=== PATIENT | female | born 1965 | race Caucasian/White ===

== ENCOUNTER → 2018-10-17 19:23 | Outpatient (REF) | payer SELFPAY ==
[2018-10-17 19:37] LABS: Add Manual Diff / Slide Review NO; Basophils Percent Auto 1.4 % (0-2); Eosinophils Percent Auto 1.8 % (2-4); Hematocrit 44.7 % (36-46); Hemoglobin 14.5 g/dL (12.0-16.0); Lymphocytes Percent Auto 27.2 % (25-40); Mean Corpuscular HGB Conc 32.5 % (30-36); Mean Corpuscular Hemoglobin 28.1 PG (26-34); Mean Corpuscular Volume 86.4 fL (80-100); Monocytes Percent Auto 7.1 % (3-14); Neutrophils Absolute Auto 6000 /uL (1500-7000); Neutrophils Percent Auto 62.5 % (50-75); Platelet Count 316 X10^3/uL (150-400); Red Blood Cell Count 5.17 X10^6/uL (4.0-5.2); Red Cell Distribution Width 14.6 % (11.6-14.8); White Blood Cell Count 9.6 X10^3/uL (4.5-11.0)
[2018-10-17 19:39] LABS: Alanine Aminotransferase 27 IU/L (9-52); Albumin 4.6 g/dL (3.5-5.0); Albumin Globulin Ratio 1.3 (1.0-2.8); Alkaline Phosphatase 100 U/L (38-126); Aspartate Aminotransferase 30 IU/L (14-36); Bilirubin Total 0.6 mg/dL (0.2-1.3); Blood Urea Nitrogen 16 mg/dL (7-17); Calcium 9.8 mg/dL (8.4-10.2); Carbon Dioxide 27 mmol/L (22-32); Chloride 104 mmol/L (98-107); Estimated Glomerular Filt Rate > 60.0 mL/min (>60); Globulin 3.5 g/dL (1.7-4.1); Glucose 90 mg/dL (70-100); HEMOLYSIS < 15 (0-50); Potassium 4.6 mmol/L (3.4-5.1); Sodium 142 mmol/L (137-145); Total Protein 8.1 g/dL (6.3-8.2)
[2018-10-17 19:54] LABS: Free T3, Triiodothyronine Free 3.28 pg/mL (2.77-5.27); Free T4, Direct Thyroxine 1.59 ng/dL (0.78-2.19); Vitamin D 25 Hydroxy (D3) 31.1 ng/mL (30.0-100.0)
[2018-10-17 20:08] LABS: Thyroid Stimulating Hormone 0.72 uIU/mL (0.47-4.68)
[2018-10-17 20:27] LABS: Vitamin B12 572 pg/mL (239-931)
== END ==
LOC: LAB 19:23
PROVIDERS: Visit Provider Nurse Practitioner Acute Care
DX: R53.83 Other fatigue (principal); R53.81 Other malaise; E03.9 Hypothyroidism, unspecified; E07.9 Disorder of thyroid, unspecified
CPT/HCPCS: 80053; 82306; 82607; 84439; 84443; 84481; 85025

== ENCOUNTER → 2019-01-17 19:24 | Outpatient (REF) | payer SELFPAY ==
[2019-01-17 19:29] LABS: Bacteria Urine None Seen; RBC Urine None Seen (0-5/HPF)
[2019-01-17 19:38] LABS: Appearance Urine UA CLEAR; Bilirubin Urine UA NEGATIVE (NEGATIVE); Color Urine UA YELLOW; Glucose Urine UA NEGATIVE (Negative); Ketones Urine UA NEGATIVE (NEGATIVE); Leukocyte Esterase Urine UA NEGATIVE (NEGATIVE); Nitrite Urine UA NEGATIVE (Negative); Occult Blood Urine UA NEGATIVE (Negative); Protein Urine UA NEGATIVE (Negative); Urobilinogen Urine UA 0.2 E.U./dL (0.2)
[2019-01-17 19:40] LABS: Culture Indicated Urine Cult Not Indicated; Squamous Epithelial Cell Urine 0-1 /HPF (0-5/HPF); WBC Urine 0-1/HPF (0-5/HPF)
== END ==
LOC: LAB 19:24
PROVIDERS: Visit Provider Nurse Practitioner Acute Care
CPT/HCPCS: 81001; 87086

== ENCOUNTER 2021-07-31 02:51 | Inpatient (IN) | payer OTHER, SELFPAY ==
[2021-07-31] VITALS (42 sets, daily range): BP systolic 90–124; BP diastolic 51–78; PULSE 48–81; RESP 10–41; TEMP 36.9–37.6; O2SAT 89–97; BMI 30.6
--- NOTE | 2021-07-31 05:25 | P.HP_ITS ---
History of Present Illness History of Present Illness Date Patient Seen: 07/31/21 Time Patient Seen: 05:26 Chief complaint: Direct admit from [facility] with COVID-19 Narrative: Gloria Yan is a 56-year-old female with history of only having staghorn calculus in her kidney and hypothyroidism presented to the [facility] in [place] with complaints of nausea, syncope, cough and inability to eat due to food tasting horrible to her. She stated that she did start feeling symptoms but 2 days ago, she felt hot but did not have a fever. She found that when she got up that she developed near-syncope and almost fell a couple times. Denies headaches, chills, chest pain, abdominal pain, nausea vomiting, dysuria, diarrhea constipation. 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 Patient denies having had a vaccine in is not interested in having a vaccine when she gets over COVID. Patient was transferred as a direct admission from [facility] and was placed into a private room. Prior to transfer from [facility], she was administered IV dexamethasone 8 mg. Underwent CTA of to rule out a PE extensive oral effusions but the rest over CT angiogram is not indicated to the not a general ED provider that she normally does not use supplemental oxygen at home but was noted to be in the low 90s at rest and would drop down to the mid 80s with any exertion. Vitals as of 1556 indicated temperature of 98.6?, blood pressure 116/64, heart rate 56 respiratory rate of 16 oxygen saturation of 94% on 2 L she weighs 102.5 kg with a BMI of 30.6. WBC is slightly below normal at 3.9 lymphocyte count is low at 0.8 rest of her CBC is within normal limits. Sodium 136 potassium 3.4 chloride 101 bicarb 25, in anion gap is 10 glucose 120 BUN 17 creatinine 1.22 GFR is 49 protein 6.8 albumin 2.9 globulin 3.9 calcium 8.3, bilirubin 0.3 alk phos 61 ALT 22 AST 32 she had a normal troponin and lactate however her COVID-[address] angio was negative for a PE but did have bilateral ground-glass findings. There chest x-ray indicated patchy ground peripheral ground-glass opacities in the mid and lower lungs l[place] aterally with a finding of COVID pneumonia. Patient History Medical History (Updated 07/31/21 @ 15:52 by JESIKA Arnold) Staghorn kidney stones Family & Social History Social History: Patient states father of old age, mother is alive and well. Tobacco & Substance use: Patient denies a history of tobacco use Meds Home Medications and Allergies Home Medications Medication Instructions Recorded Confirmed Type amoxicillin 500 mg-potassium 1 tab PO BID 07/31/21 07/31/21 History clavulanate 125 mg tablet levothyroxine 125 mcg tablet 112 mcg PO DAILY 07/31/21 07/31/21 History liothyronine 5 mcg tablet 5 mcg PO DAILY 07/31/21 07/31/21 History Allergies Allergy/AdvReac Type Severity Reaction Status Date / Time adhesive AdvReac Unknown Verified 07/31/21 12:44 metformin AdvReac Unknown Verified 07/31/21 12:44 IV Contrast Allergy Unknown Uncoded 07/31/21 06:05 Review of Systems Review of Systems ROS: Yes All systems reviewed with the patient and are negative except as oth erwise documented Objective Labs Labs: Labs drawn on 07/30 will be scanned into the chart Assessment & Plan Assessment & Plan narrative: Gloria Yan is accepted for transfer from [facility] for further management treatment of COVID 19 pneumonia. 1. COVID-19 * Remdesivir 200 mg IV x1 and 100 mg IV once daily for the next 4 days * IV dexamethasone 6 mg starting today at 9:00 a.m. * Patient is encouraged to prone for at least 12 hours a day 2. Chronic renal impairment secondary to large kidney stones * Patient has a creatinine of 1.2 and will renally dose her medications VTE Prophylaxis: Wells risk score 0 Enoxaparin 40 mg subQ once daily Patient is admitted to the inpatient service due to the severity of disease, risks of further disease progression and this stay is expected to exceed 2 midnights. FEN: IV fluids: IV normal saline at 100 mL per hour diet: General, labs: CBC, C/BMP, liver enzymes, Mag, PT/INR Consultants None Dispo: Home Code status: Full code as discussed with the patient who identifies her husbandsurrogate and POA. [X] I have utilized all available immediate resources to obtain, update, or review of the patient's current medications Quality VTE Deep Vein Thrombosis/Pulmonary Embolism Present on Admission: No MIPS - Admit I confirm the patient?s Advance Care Plan is present, Code status is documented, Surrogate decision maker is in patient?s record [If Yes, STOP here]: Yes MIPS - DC The patient has current or prior documentation of left ventricular ejection fraction (LVEF) less than 40%, or moderate or severely depressed left ventricular systolic function.: No
--- NOTE | 2021-07-31 06:46 | PC.ADMIT ---
[address] Admission Note: The patient,Gloria Yan,56 y/o, was given written information regarding hospital policies, unit procedures and contact persons. Patient's smoking status: Never smoker. Vital Signs - 8 hr 07/31/21 05:30 Temperature 99.6 F Pulse Rate 58 L Respiratory Rate 24 Blood Pressure 119/78 Pulse Oximetry 94 0500-Patient is a Direct Admit from [facility], oriented x3, speech is clear but delayed. Ambulated to with SBA on 2L NC, SpO2 >92% mild shortness of breath, persistent cough. SB/SR, BP 119/78, afebrile. Patient says she usually lies on her stomach while sleeping, she started proning right away.
[2021-07-31] MEDS: REMDESIVIR 200 MG in SODIUM CHLORIDE 0.9% 210 ML 250 ML IV (07:38)
[2021-07-31] MEDS: SODIUM CHLORIDE 0.9% FLUSH 10 ML IV ×3 (07:38→20:00)
[2021-07-31] MEDS: DEXAMETHASONE 10 MG/ML VIAL 6 MG IV (08:56)
[2021-07-31] MEDS: HEPARIN 5,000 UNIT/ML VIAL 5000 UNIT SUBCUT ×2 (08:57→20:00)
--- NOTE | 2021-07-31 12:37 | PC.NURSE ---
Patient napped soundly in prone position. Patient reports feeling fatigued, and states she keeps sweating while sleeping. She reports some lightheadedness when getting up out of bed. Patient assisted to BSC, reported feeling like I need to sit again upon standing. BP down to 90/53 with HR of [address] Barlow notified and 1L normal saline bolus ordered. Patient back in bed and attempting to eat lunch. Call light within reach. Bed alarm on.
[2021-07-31] MEDS: SODIUM CHLORIDE 0.9% 1,000 ML 1000 ML IV (12:50)
--- NOTE | 2021-07-31 13:54 | CM.DANOTE ---
Patient is a 56 yo female who was admitted on 07/31/21 today for COVID+. Pt has [facility] for insurance and her PCP is not listed. EMR was reviewed. Per MD, pt was a direct admit from [facility] in [place] for COVID symptoms. Per RN, pt proning right away and currently on 2LO2 and fatigues quickly after getting up to bedside commode. SW called pt on room phone due to COVID+ precautions and explained role and pt very brief and minimal in her answers but confirms that she lives with Shane in [place] and pt is independent at baseline. SW inquired if spouse is having any symptoms and she states he will tell you he's fine but I'm not sure. Pt confirms that he currently is not going in to work and could potentially provide assist at d/c pending how he is feeling. Pt states that they do not have any other family or friends who could provide assist like dropping off meals or going to the store. SW discussed possible option of HH at d/c if below baseline but likely not needed and unclear if her insurance would cover HH. Pt not providing much more info at this time. Plan: SW to follow closely for pt progress and potential weaning off oxygen to room air to see how she tolerates and her activity tolerance towards determining d/c planning needs closer to discharge. MARY Becerra Discharge Planning/Care Management CM Discharge Assessment Start: 07/31/21 13:36 Freq: Status: Active Protocol: Document 07/31/21 13:36 BF (Rec: 07/31/21 13:54 BF [id number]) Discharge Planning Assessment Assigned Home Lighting Adviser MARY Tian DPOA/Assigned Designee Name spouse informally Contact Information Shane Yan Advance Directives? Yes Advance Directives on File No History Provided By Patient,Medical Record Has Patient been admitted in last 30 No days? Prior Living Arrangements House Household Members spouse Type of transporation used prior to Drives own vehicle admit Independent with ADL's Yes Is patient alert and oriented? Yes Caregiver for Another No Comment r/o possible HH pending progress Barriers to Discharge No Discharge Plan Home with Home Health Transportation Arrangement possible spouse pending his symptoms Additional Comment pending progress Review Status In Process Please Provide Date Initial DC 07/31/21 Assessment Was Performed Next Review Type Continued Stay Review
[2021-07-31] MEDS: LEVOTHYROXINE 112 MCG TABLET PO (18:28)
[2021-07-31] MEDS: LIOTHYRONINE 5 MCG TABLET PO (18:29)
[2021-07-31] MEDS: AMOXICILLIN/CLAV 500/125 MG 1 TAB PO (19:47)
[2021-08-01] VITALS (13 sets, daily range): BP systolic 93–124; BP diastolic 50–60; PULSE 48–65; RESP 16–21; TEMP 36.7–37.2; O2SAT 89–97
[2021-08-01] MEDS: LEVOTHYROXINE 112 MCG TABLET PO (05:00)
[2021-08-01 05:20] LABS: Add Manual Diff / Slide Review NO; Basophils Absolute Auto 100 /uL (0-100); Basophils Percent Auto 1.7 % (0-2); Eosinophils Absolute Auto 0 /uL (0-450); Eosinophils Percent Auto 0.1 % (2-4); Hematocrit 37.8 % (36-46); Hemoglobin 12.6 g/dL (12.0-16.0); Lymphocytes Absolute Auto 1000 /uL (1100-4500); Lymphocytes Percent Auto 13.5 % (25-40); Mean Corpuscular HGB Conc 33.4 % (30-36); Mean Corpuscular Hemoglobin 27.4 PG (26-34); Mean Corpuscular Volume 82.1 fL (80-100); Monocytes Absolute Auto 900 /uL (0-900); Monocytes Percent Auto 11.2 % (3-14); Neutrophils Absolute Auto 5600 /uL (1500-7000); Neutrophils Percent Auto 73.5 % (50-75); Platelet Count 192 X10^3/uL (150-400); Red Cell Distribution Width 13.8 % (11.6-14.8); White Blood Cell Count 7.7 X10^3/uL (4.5-11.0)
[2021-08-01 05:24] LABS: BUN Creatinine Ratio 20.8 (6-22); Blood Urea Nitrogen 16 mg/dL (7-17); Calcium 8.6 mg/dL (8.4-10.2); Carbon Dioxide 26 mmol/L (22-32); Chloride 106 mmol/L (98-107); Estimated Glomerular Filt Rate > 60.0 mL/min (>60); Glucose 121 mg/dL (70-100); HEMOLYSIS < 15 (0-50); Sodium 138 mmol/L (137-145)
[2021-08-01] MEDS: LIOTHYRONINE 5 MCG TABLET PO (07:44)
[2021-08-01] MEDS: AMOXICILLIN/CLAV 500/125 MG 1 TAB PO ×2 (08:27→20:55)
[2021-08-01] MEDS: DEXAMETHASONE 10 MG/ML VIAL 6 MG IV (08:27)
[2021-08-01] MEDS: SODIUM CHLORIDE 0.9% FLUSH 10 ML IV ×3 (08:27→20:56)
[2021-08-01] MEDS: REMDESIVIR 100 MG in SODIUM CHLORIDE 0.9% 230 ML 250 ML IV (08:27)
[2021-08-01] MEDS: HEPARIN 5,000 UNIT/ML VIAL 5000 UNIT SUBCUT ×2 (08:28→20:55)
--- NOTE | 2021-08-01 15:05 | PC.NURSE ---
Shift summary: Patient remains on 2L NC today, 90-97% spo2, still fatigued and short of breath with exertion. Using BSC with 1 PA/SB assistance. Able to call and make her needs known, bed alarm activated for fall precautions, call light within reach. SLIV to left AC.
--- NOTE | 2021-08-01 16:50 | PM.PN.1 ---
Subjective Subjective Date Patient Seen: 08/01/21 Time Patient Seen: 08:00 Interval history: Her dizziness and lightheadedness have improved. Her shortness of breath is starting to improve. She coughs when trying to take a deep breath. I did turn off her oxygen which was at 3L and she desat to the 80s at rest. Exam Vital Signs (past 8 hours): - 08/01/21 09:27 08/01/21 12:00 08/01/21 14:26 Temperature 98.5 F Pulse Rate 56 L 58 L 48 L Respiratory Rate 18 16 18 Blood Pressure 95/56 L Pulse Oximetry 97 93 90 L 08/01/21 16:39 Temperature 98.8 F Pulse Rate 63 Respiratory Rate 21 Blood Pressure 93/50 L Pulse Oximetry 91 Oxygen Delivery Method Nasal Cannula Oxygen Flow Rate 2 Narrative Exam Narrative: GEN: no acute distress PULM: poor air movement, coarse breath sounds ABD: soft, nontender, nondistended, no organomegaly EXT: warm and well perfused with no edema Objective Labs Result Diagrams: 08/01/21 05:05 08/01/21 05:05 Labs: Laboratory Results - last 24 hr 08/01/21 08/01/21 05:05 05:05 WBC 7.7 RBC 4.60 Hgb 12.6 Hct 37.8 MCV 82.1 MCH 27.4 MCHC 33.4 RDW 13.8 Plt Count 192 Neut % (Auto) 73.5 Lymph % (Auto) 13.5 L [place] % (Auto) 11.2 Eos % (Auto) 0.1 L Baso % (Auto) 1.7 Neut # (Auto) 5600 Lymph # (Auto) 1000 L [place] # (Auto) 900 Eos # (Auto) 0 Baso # (Auto) 100 Sodium 138 Potassium 4.0 Chloride 106 Carbon Dioxide 26 BUN 16 Creatinine 0.77 Estimated GFR > 60.0 BUN/Creatinine Ratio 20.8 Glucose 121 H Calcium 8.6 PFSH Medical History (Updated 07/31/21 @ 15:52 by JESIKA Arnold) Staghorn kidney stones Social History household members: spouse Smoking Status: Never smoker Assessment & Plan Assessment & Plan narrative: Ms. Yan is a 56W with PMH frequent UTIs, hypothyroid who comes in with acute hypoxemic respiratory failure from COVID pneumonia. 1. Acute hypoxemic respiratory failure from COVID pneumonia -continue on oxygen and wean as able goal >90% -conntinue dexamethasone and remdesivir -encourage proning -recommend vaccination at discharge 2. Hypothyroidism -continue home medications for now 3. Frequent UTIs -continue suppressive abx Time Spent With Patient Critical Care time: I spent a total of [] minutes of critical care time on this patient's care today; this time is exclusive of procedural time. Quality VTE Deep Vein Thrombosis/Pulmonary Embolism Present on Admission: No
[2021-08-02] VITALS (26 sets, daily range): BP systolic 88–133; BP diastolic 52–69; PULSE 43–77; RESP 16–25; TEMP 36.3–36.8; O2SAT 88–94
[2021-08-02 04:52] LABS: Add Manual Diff / Slide Review NO; BUN Creatinine Ratio 26.1 (6-22); Basophils Absolute Auto 0 /uL (0-100); Basophils Percent Auto 0.2 % (0-2); Blood Urea Nitrogen 18 mg/dL (7-17); Calcium 8.4 mg/dL (8.4-10.2); Carbon Dioxide 26 mmol/L (22-32); Chloride 106 mmol/L (98-107); Eosinophils Absolute Auto 0 /uL (0-450); Estimated Glomerular Filt Rate > 60.0 mL/min (>60); Glucose 127 mg/dL (70-100); HEMOLYSIS < 15 (0-50); Hematocrit 37.9 % (36-46); Hemoglobin 12.7 g/dL (12.0-16.0); Lymphocytes Absolute Auto 1300 /uL (1100-4500); Lymphocytes Percent Auto 18.6 % (25-40); Mean Corpuscular HGB Conc 33.7 % (30-36); Mean Corpuscular Hemoglobin 27.8 PG (26-34); Mean Corpuscular Volume 82.5 fL (80-100); Monocytes Absolute Auto 1000 /uL (0-900); Monocytes Percent Auto 14.3 % (3-14); Neutrophils Absolute Auto 4800 /uL (1500-7000); Neutrophils Percent Auto 66.9 % (50-75); Platelet Count 234 X10^3/uL (150-400); Red Blood Cell Count 4.59 X10^6/uL (4.0-5.2); Sodium 137 mmol/L (137-145); White Blood Cell Count 7.1 X10^3/uL (4.5-11.0)
[2021-08-02] MEDS: LIOTHYRONINE 5 MCG TABLET PO (06:19)
[2021-08-02] MEDS: LEVOTHYROXINE 112 MCG TABLET PO (06:19)
[2021-08-02] MEDS: DEXAMETHASONE 10 MG/ML VIAL 6 MG IV (08:57)
[2021-08-02] MEDS: HEPARIN 5,000 UNIT/ML VIAL 5000 UNIT SUBCUT ×2 (08:57→20:32)
[2021-08-02] MEDS: AMOXICILLIN/CLAV 500/125 MG 1 TAB PO ×2 (08:57→20:32)
[2021-08-02] MEDS: SODIUM CHLORIDE 0.9% FLUSH 10 ML IV ×2 (08:59→20:32)
[2021-08-02] MEDS: REMDESIVIR 100 MG in SODIUM CHLORIDE 0.9% 230 ML 250 ML IV (09:07)
--- NOTE | 2021-08-02 10:46 | CM.DPC ---
DCP Cont: Per MD, pt remains stable on 2LO2 still and seems to be improving some and does not anticipate any needs at d/c once stable. Pt unvaccinated for COVID at baseline. Per RN, currently no concerns although noted pt also has flat affect with brief answers with nursing staff similar to SW discussion with pt. Plan: SW to follow for plan of d/c home with spouse when medically stable and any further identified discharge planning needs. MARY Becerra
--- NOTE | 2021-08-02 13:44 | PC.NURSE ---
Orthostatic vital signs reported to Dr. Mendes. Patient reports she still feels weird in her lungs today, states she slept well. Tolerating diet, SB assist to BSC for safety. De saturated to 83% on 2L with activity, at rest 94%. Call light within reach.
[2021-08-02] MEDS: LACTATED RINGERS 1,000 ML 150 ML IV ×2 (15:21→23:44)
[2021-08-02] MEDS: POLYVINYL ALCOHOL DROPS 1 DROPS EYE-BOTH (15:22)
--- NOTE | 2021-08-02 17:19 | P.PN_ITS ---
Subjective Subjective Date Patient Seen: 08/02/21 Interval history: 56-year-old female admitted to the hospital with acute hypoxic respiratory failure secondary to COVID pneumonia. The patient continues to have orthostatic hypotension. She also is hypoxic. Questions were answered regard ing treatment of COVID. Patient requests eyedrops given at her dry eyes. Exam Vital Signs (past 8 hours): - 08/02/21 12:18 08/02/21 12:20 08/02/21 12:55 Temperature 97.4 F L Pulse Rate 56 L Pulse Rate [Orthostatic Lying] 56 L Pulse Rate [Orthostatic Sitting] 58 L Pulse Rate [Orthostatic Standing] 77 Respiratory Rate 25 H Blood Pressure 123/62 Blood Pressure [Orthostatic Lying] 123/62 Blood Pressure [Orthostatic Sitting] 111/57 L Blood Pressure [Orthostatic Standing] 88/55 L Pulse Oximetry 88 L 94 08/02/21 16:00 Temperature 97.6 F Pulse Rate 48 L Pulse Rate [Orthostatic Lying] Pulse Rate [Orthostatic Sitting] Pulse Rate [Orthostatic Standing] Respiratory Rate 16 Blood Pressure 117/66 Blood Pressure [Orthostatic Lying] Blood Pressure [Orthostatic Sitting] Blood Pressure [Orthostatic Standing] Pulse Oximetry 94 Oxygen Delivery Method Nasal Cannula Oxygen Flow Rate 2 Narrative Exam Narrative: Pleasant female resting comfortably in no obvious distress Resp Other: Lungs: Basilar crackles Cardio Other: Cardiac exam: Regular rate and rhythm normal S1-S2 GI Other: Abdomen: Soft and nontender Extrem Other: Extremities: No edema Objective Labs Result Diagrams: 08/02/21 04:30 08/02/21 04:30 Labs: Laboratory Results - last 24 hr 08/02/21 08/02/21 04:30 04:30 WBC 7.1 RBC 4.59 Hgb 12.7 Hct 37.9 MCV 82.5 MCH 27.8 MCHC 33.7 RDW 14.0 Plt Count 234 Neut % (Auto) 66.9 Lymph % (Auto) 18.6 L [place] % (Auto) 14.3 H Eos % (Auto) 0.0 L Baso % (Auto) 0.2 Neut # (Auto) 4800 Lymph # (Auto) 1300 [place] # (Auto) 1000 H Eos # (Auto) 0 Baso # (Auto) 0 Sodium 137 Potassium 4.0 Chloride 106 Carbon Dioxide 26 BUN 18 H Creatinine 0.69 Estimated GFR > 60.0 BUN/Creatinine Ratio 26.1 H Glucose 127 H Calcium 8.4 PFSH Medical History (Updated 07/31/21 @ 15:52 by JESIKA Arnold) Staghorn kidney stones Social History household members: spouse Smoking Status: Never smoker Assessment & Plan Assessment & Plan narrative: ?Acute hypoxemic respiratory failure from COVID pneumonia -continue on oxygen and wean as able goal >90% -conntinue dexamethasone and remdesivir -encourage proning -recommend vaccination at discharge -patient remains hypoxic, will continue current treatment 2. Hypothyroidism -continue home medications for now 3. Frequent UTIs -continue suppressive abx 4. Orthostatic hypotension -suspect dehydration -continue IV hydration -if symptoms persists consider Cortrosyn stimulation test I have utilized all available resources to update, validate, confirm current medications Time Spent With Patient Critical Care time: I spent a total of [] minutes of critical care time on this patient's care today; this time is exclusive of procedural time. Quality VTE Deep Vein Thrombosis/Pulmonary Embolism Present on Admission: No
[2021-08-03] VITALS (8 sets, daily range): BP systolic 87–157; BP diastolic 56–76; PULSE 49–91; RESP 16–22; TEMP 36.3–37.2; O2SAT 85–95
[2021-08-03 05:25] LABS: Alanine Aminotransferase 16 IU/L (<35); Albumin 2.9 g/dL (3.5-5.0); Alkaline Phosphatase 53 U/L (38-126); Aspartate Aminotransferase 32 IU/L (14-36); BUN Creatinine Ratio 22.1 (6-22); Bilirubin Total 0.3 mg/dL (0.2-1.3); Blood Urea Nitrogen 15 mg/dL (7-17); Calcium 8.3 mg/dL (8.4-10.2); Carbon Dioxide 26 mmol/L (22-32); Chloride 107 mmol/L (98-107); Estimated Glomerular Filt Rate > 60.0 mL/min (>60); Globulin 2.9 g/dL (1.7-4.1); Glucose 120 mg/dL (70-100); HEMOLYSIS < 15 (0-50); Potassium 3.9 mmol/L (3.4-5.1); Sodium 138 mmol/L (137-145); Total Protein 5.8 g/dL (6.3-8.2)
[2021-08-03] MEDS: LIOTHYRONINE 5 MCG TABLET PO (06:04)
[2021-08-03] MEDS: LEVOTHYROXINE 112 MCG TABLET PO (06:04)
--- NOTE | 2021-08-03 06:33 | PC.NURSE ---
Shift Note-Patient sleeps prone, O2 increased to 4L with humidification to keep SpO2 >90%, desats to 83% during activity, takes ~ 10 minutes to recover, says my lungs feel tight, lung sounds are diminished, RR shallow in 20s, discussed with DIAMOND DIE POLISHER in house, LR decreased to 60ml/hr, UOP 825ml for shift, orthostatic vitals done, see chart, denies lightheadedness but can't stand too long d/t fatigue, CXR for later in am.
--- NOTE | 2021-08-03 07:30 | DI.RAD.S_ITS ---
PROCEDURE: XR CHEST 1V INDICATIONS: Increasing shortness of breath and oxygen needs COVID + TECHNIQUE: One view of the chest was acquired. COMPARISON: None. FINDINGS: Bilateral interstitial and airspace opacities, most pronounced in the lung bases. No visible pleural effusion. No findings of pneumothorax. Heart size is normal. IMPRESSION: Bilateral interstitial and airspace opacities are nonspecific but would be consistent with the provided history of viral pneumonia/pneumonitis. Dictated by: Ronnie Fabian M.D. on 08/03/2021 at 8:37 Approved by: Ronnie Fabian M.D. on 08/03/2021 at 9:26
[2021-08-03] MEDS: SODIUM CHLORIDE 0.9% FLUSH 10 ML IV ×2 (08:37→21:38)
[2021-08-03] MEDS: DEXAMETHASONE 10 MG/ML VIAL 6 MG IV (08:37)
[2021-08-03] MEDS: AMOXICILLIN/CLAV 500/125 MG 1 TAB PO ×2 (08:37→21:38)
[2021-08-03] MEDS: REMDESIVIR 100 MG in SODIUM CHLORIDE 0.9% 230 ML 250 ML IV (08:37)
[2021-08-03] MEDS: HEPARIN 5,000 UNIT/ML VIAL 5000 UNIT SUBCUT ×2 (08:37→21:38)
--- NOTE | 2021-08-03 17:17 | PM.PN.1 ---
Subjective Subjective Date Patient Seen: 08/03/21 Interval history: The patient is a 56 y/o female admitted with acute hypoxic respiratory failure secondary to Covid-19 pneumonia. She remains hypoxic. She desaturates to 88 % at rest on room air. No further dizziness. no further hypotension Exam Vital Signs (past 8 hours): - 08/03/21 11:43 08/03/21 12:30 08/03/21 16:35 Temperature 97.8 F 97.4 F L Pulse Rate 57 L 59 L 53 L Respiratory Rate 16 Blood Pressure 108/62 113/63 Pulse Oximetry 94 94 85 L Oxygen Delivery Method Nasal Cannula Oxygen Flow Rate 3 Narrative Exam Narrative: 56 y/o female with a flat affect, resting comfortably on 3 liters of oxygen Resp Other: Decreased breath sounds with occassional scattered crackles Cardio Other: RRR nl SlS2 GI Other: Abd: soft/ non tender Extrem Other: no edema Objective Labs Result Diagrams: 08/02/21 04:30 08/03/21 04:40 Labs: Laboratory Results - last 24 hr 08/03/21 04:40 Sodium 138 Potassium 3.9 Chloride 107 Carbon Dioxide 26 BUN 15 Creatinine 0.68 Estimated GFR > 60.0 BUN/Creatinine Ratio 22.1 H Glucose 120 H Calcium 8.3 L Total Bilirubin 0.3 AST 32 ALT 16 Alkaline Phosphatase 53 Total Protein 5.8 L Albumin 2.9 L Globulin 2.9 Albumin/Globulin Ratio 1.0 [facility] Medical History (Updated 07/31/21 @ 15:52 by JESIKA Arnold) Staghorn kidney stones Social History household members: spouse Smoking Status: Never smoker Assessment & Plan Assessment & Plan narrative: Acute hypoxemic respiratory failure from COVID pneumonia -continue on oxygen and wean as able goal >90% -conntinue dexamethasone and remdesivir -encourage proning -recommend vaccination at discharge -patient remains hypoxic, will continue current treatment -at day #5 of decadron/remdesivir, consider discharge home with oxygen if she can maintain her saturations on 4 liters of oxygen or less 2. Hypothyroidism -continue home medications for now 3. Frequent UTIs -continue suppressive abx 4. Orthostatic hypotension -suspect dehydration -continue IV hydration no longer orthostatic will continue to monitor Time Spent With Patient Critical Care time: I spent a total of [] minutes of critical care time on this patient's care today; this time is exclusive of procedural time. Quality VTE Deep Vein Thrombosis/Pulmonary Embolism Present on Admission: No
[2021-08-03 18:51] LABS: Ferritin 228 ng/mL (11-264)
[2021-08-04] VITALS (9 sets, daily range): BP systolic 93–137; BP diastolic 57–68; PULSE 55–75; RESP 19–28; TEMP 36.4–36.9; O2SAT 82–94
[2021-08-04] MEDS: ONDANSETRON 4 MG/2 ML INJ IV (00:56)
[2021-08-04 05:15] LABS: Add Manual Diff / Slide Review NO; Basophils Absolute Auto 0 /uL (0-100); Basophils Percent Auto 0.1 % (0-2); Eosinophils Absolute Auto 0 /uL (0-450); Hematocrit 38.6 % (36-46); Hemoglobin 12.9 g/dL (12.0-16.0); Lymphocytes Absolute Auto 1700 /uL (1100-4500); Lymphocytes Percent Auto 16.9 % (25-40); Mean Corpuscular HGB Conc 33.3 % (30-36); Mean Corpuscular Hemoglobin 27.5 PG (26-34); Mean Corpuscular Volume 82.6 fL (80-100); Monocytes Absolute Auto 1000 /uL (0-900); Monocytes Percent Auto 10.7 % (3-14); Neutrophils Absolute Auto 7100 /uL (1500-7000); Neutrophils Percent Auto 72.3 % (50-75); Platelet Count 339 X10^3/uL (150-400); Red Blood Cell Count 4.68 X10^6/uL (4.0-5.2); Red Cell Distribution Width 13.9 % (11.6-14.8); White Blood Cell Count 9.8 X10^3/uL (4.5-11.0)
[2021-08-04 05:19] LABS: Alanine Aminotransferase 17 IU/L (<35); Alkaline Phosphatase 49 U/L (38-126); Aspartate Aminotransferase 33 IU/L (14-36); BUN Creatinine Ratio 25.4 (6-22); Bilirubin Total 0.5 mg/dL (0.2-1.3); Blood Urea Nitrogen 16 mg/dL (7-17); Calcium 8.3 mg/dL (8.4-10.2); Carbon Dioxide 26 mmol/L (22-32); Chloride 107 mmol/L (98-107); Estimated Glomerular Filt Rate > 60.0 mL/min (>60); Globulin 2.9 g/dL (1.7-4.1); Glucose 116 mg/dL (70-100); HEMOLYSIS 20 (0-50); Potassium 3.9 mmol/L (3.4-5.1); Sodium 138 mmol/L (137-145); Total Protein 5.9 g/dL (6.3-8.2)
[2021-08-04 05:22] LABS: D Dimer 666 ng/mL (<230)
[2021-08-04 05:36] LABS: Procalcitonin 0.05 ng/mL (<0.5)
[2021-08-04] MEDS: LIOTHYRONINE 5 MCG TABLET PO (06:14)
[2021-08-04] MEDS: LEVOTHYROXINE 112 MCG TABLET PO (06:14)
[2021-08-04] MEDS: SODIUM CHLORIDE 0.9% FLUSH 10 ML IV ×2 (08:34→20:36)
[2021-08-04] MEDS: REMDESIVIR 100 MG in SODIUM CHLORIDE 0.9% 230 ML 250 ML IV (08:34)
[2021-08-04] MEDS: DEXAMETHASONE 10 MG/ML VIAL 6 MG IV (08:34)
[2021-08-04] MEDS: HEPARIN 5,000 UNIT/ML VIAL 5000 UNIT SUBCUT ×2 (08:34→20:36)
[2021-08-04] MEDS: AMOXICILLIN/CLAV 500/125 MG 1 TAB PO ×2 (08:34→20:36)
--- NOTE | 2021-08-04 13:38 | PC.NURSE ---
Addendum entered by Blanca Cardenas R.N. 08/04/21 14:53: Patient able to shower and brush teeth on 7L NC, SpO2 decreased to upper 80s. Currently proning and oxygen weaned back to 5L NC, SpO2 95-98%. Will continue to wean as able. Original Note: Day Shift Note Patient sitting up in bed majority of shift. On 5L NC with SpO2 slowly decreasing to 87-90%. Denies shortness of breath. Instructed to deep breathe through nose and instructed to prone or side lie during the day to optimize oxygenation. Pt agreeable and immediately repositioned self to right side, SpO2 increased to 94-95%.
--- NOTE | 2021-08-04 18:07 | P.PN_ITS ---
Subjective Subjective Date Patient Seen: 08/04/21 Interval history: 56-year-old female admitted to the hospital with COVID pneumonia. She continues to be hypoxic. She desaturates easily with minimal activity. Patient currently remains on 5 L of oxygen. She desaturated to 86% earlier after taking a shower. She has no specific complaints. Patient is anxious to discharge home. Exam Vital Signs (past 8 hours): - 08/04/21 12:46 08/04/21 13:15 08/04/21 17:00 Temperature 98 F Pulse Rate 56 L 59 L Respiratory Rate 20 26 H Blood Pressure 129/68 119/67 Pulse Oximetry 92 94 86 L Oxygen Delivery Method Nasal Cannula Oxygen Flow Rate 5 Narrative Exam Narrative: Unhappy female lying in bed Resp Other: Lungs decreased breath sounds no rhonchi crackles or wheezes Cardio Other: Cardiac exam: Regular rate and rhythm normal S1-S2 GI Other: Abdomen soft nontender nondistended Extrem Other: Extremity no edema Objective Labs Result Diagrams: 08/04/21 04:35 08/04/21 04:35 Labs: Laboratory Results - last 24 hr 08/03/21 08/04/21 08/04/21 04:40 04:35 04:35 WBC 9.8 RBC 4.68 Hgb 12.9 Hct 38.6 MCV 82.6 MCH 27.5 MCHC 33.3 RDW 13.9 Plt Count 339 Neut % (Auto) 72.3 Lymph % (Auto) 16.9 L [place] % (Auto) 10.7 Eos % (Auto) 0.0 L Baso % (Auto) 0.1 Neut # (Auto) 7100 H Lymph # (Auto) 1700 [place] # (Auto) 1000 H Eos # (Auto) 0 Baso # (Auto) 0 D-Dimer Sodium 138 Potassium 3.9 Chloride 107 Carbon Dioxide 26 BUN 16 Creatinine 0.63 Estimated GFR > 60.0 BUN/Creatinine Ratio 25.4 H Glucose 116 H Calcium 8.3 L Ferritin 228 Total Bilirubin 0.5 AST 33 ALT 17 Alkaline Phosphatase 49 Total Protein 5.9 L Albumin 3.0 L Globulin 2.9 Albumin/Globulin Ratio 1.0 Procalcitonin 08/04/21 08/04/21 04:35 04:35 WBC RBC Hgb Hct MCV MCH MCHC RDW Plt Count Neut % (Auto) Lymph % (Auto) [place] % (Auto) Eos % (Auto) Baso % (Auto) Neut # (Auto) Lymph # (Auto) [place] # (Auto) Eos # (Auto) Baso # (Auto) D-Dimer 666 H Sodium Potassium Chloride Carbon Dioxide BUN Creatinine Estimated GFR BUN/Creatinine Ratio Glucose Calcium Ferritin Total Bilirubin AST ALT Alkaline Phosphatase Total Protein Albumin Globulin Albumin/Globulin Ratio Procalcitonin 0.05 [facility] Medical History (Updated 07/31/21 @ 15:52 by JESIKA Aronld) Staghorn kidney stones Social History household members: spouse Smoking Status: Never smoker Assessment & Plan Assessment & Plan narrative: ?Acute hypoxemic respiratory failure from COVID pneumonia -continue on oxygen and wean as able goal >90% -conntinue dexamethasone and remdesivir -encourage proning -recommend vaccination at discharge -patient remains hypoxic, will continue current treatment -at day #5 of decadron/remdesivir, consider discharge home with oxygen if she can maintain her saturations on 4 liters of oxygen or less -she remains markedly hypoxic, will attempt discharge home after day 5 of remdesivir if she can maintain O2 sat on 4 L of less of oxygen 2. Hypothyroidism -continue home medications for now 3. Frequent UTIs -continue suppressive abx 4. Orthostatic hypotension -suspect dehydration -continue IV hydration no longer orthostatic will continue to monitor Disposition home at discharge Time Spent With Patient Critical Care time: I spent a total of [] minutes of critical care time on this patient's care today; this time is exclusive of procedural time. Quality VTE Deep Vein Thrombosis/Pulmonary Embolism Present on Admission: No
[2021-08-05 00:45] VITALS: BP 104/55; PULSE 54; RESP 20; O2SAT 88
[2021-08-05] MEDS: ACETAMINOPHEN 325 MG TABLET 650 MG PO ×2 (00:52→13:45)
[2021-08-05] MEDS: LEVOTHYROXINE 112 MCG TABLET PO (06:20)
[2021-08-05] MEDS: LIOTHYRONINE 5 MCG TABLET PO (06:20)
[2021-08-05 06:40] VITALS: BP 128/67; PULSE 84; RESP 21; TEMP 36.9; O2SAT 94
[2021-08-05 08:30] VITALS: BP 111/62; PULSE 64; RESP 20; TEMP 36.5; O2SAT 96
[2021-08-05] MEDS: HEPARIN 5,000 UNIT/ML VIAL 5000 UNIT SUBCUT (09:26)
[2021-08-05] MEDS: REMDESIVIR 100 MG in SODIUM CHLORIDE 0.9% 230 ML 250 ML IV (09:26)
[2021-08-05] MEDS: AMOXICILLIN/CLAV 500/125 MG 1 TAB PO (09:26)
[2021-08-05] MEDS: DEXAMETHASONE 10 MG/ML VIAL 6 MG IV (09:26)
[2021-08-05] MEDS: SODIUM CHLORIDE 0.9% FLUSH 10 ML IV (09:27)
[2021-08-05 11:00] VITALS: O2SAT 92
[2021-08-05 11:29] VITALS: O2SAT 92
--- NOTE | 2021-08-05 12:05 | PM.DS.1 ---
History of Present Illness History of Present Illness Date Patient Seen: 08/05/21 Chief complaint: Direct admit from [facility] with COVID-19 Narrative: Gloria Yan is a 56-year-old female with history of only having staghorn calculus in her kidney and hypothyroidism presented to the [facility] in [place] with complaints of nausea, syncope, cough and inability to eat due to food tasting horrible to her.? She stated that she did start feeling symptoms but 2 days ago, she felt hot but did not have a fever.? She found that when she got up that she developed near-syncope and almost fell a couple times.? Denies headaches, chills, chest pain, abdominal pain, nausea vomiting, dysuria, diarrhea constipation.? 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 Patient denies having had a vaccine in is not interested in having a vaccine when she gets over COVID. Patient was transferred as a direct admission from [facility] and was placed into a private room.? Prior to transfer from [facility], she was administered IV dexamethasone 8 mg.? Underwent CTA of to rule out a PE extensive oral effusions but the rest over CT angiogram is not indicated to the not a general ED provider that she normally does not use supplemental oxygen at home but was noted to be in the low 90s at rest and would drop down to the mid 80s with any exertion.? Vitals as of 1556 indicated temperature of 98.6?, blood pressure 116/64, heart rate 56 respiratory rate of 16 oxygen saturation of 94% on 2 L she weighs 102.5 kg with a BMI of 30.6.? WBC is slightly below normal at 3.9 lymphocyte count is low at 0.8 rest of her CBC is within normal limits.? Sodium 136 potassium 3.4 chloride 101 bicarb 25, in anion gap is 10 glucose 120 BUN 17 creatinine 1.22 GFR is 49 protein 6.8 albumin 2.9 globulin 3.9 calcium 8.3, bilirubin 0.3 alk phos 61 ALT 22 AST 32 she had a normal troponin and lactate however her COVID-19 PCR was positive.? CT angio was negative for a PE but did have bilateral ground-glass findings.? There chest x-ray indicated patchy ground peripheral ground-glass opacities in the mid and lower lungs bilaterally with a finding of COVID pneumonia. Discharge Providers Provider Date of admission: 07/31/21 02:51 Discharge Date: 08/05/21 Consults: 08/05/21 11:27 Consult to Respiratory Therapy Evaluate & Treat Comment: home 02 eval Physician Instructions: Evaluate and treat Discharge provider: Cherelle Mendes MD Summary Hospital Course Discharge Diagnosis: 1. Acute respiratory failure secondary to COVID pneumonia 2. COVID pneumonia 3. Hypothyroid 4. Chronic urinary tract infection Hospital Course: Patient was admitted to the hospital for acute respiratory failure secondary to COVID pneumonia. She was placed on Decadron and remdesivir. Patient completed a 5 day course of therapy. She remained hypoxic throughout the hospital stay. Her oxygen saturation remained in the high 80s on 3-5 L. she was tapered down from 5 L and able to be on 3 L at rest. The patient was anxious to discharge home. A home O2 eval was obtained. And the patient was deemed appropriate for discharge home. She has no complaints of cough shortness of breath or nausea at this time. Patient will be discharged home on oxygen plans to follow-up with her PCP next week for further evaluation. At the time of this dictation she is in no acute distress and deemed appropriate for discharge home. Status at Discharge Cognitive/behavioral status at discharge: oriented Functional status at discharge: independent ambulation Overall status at discharge: patient is progressing back to baseline Exam Vital Signs (past 8 hours): - 08/05/21 06:40 08/05/21 08:30 08/05/21 11:00 Temperature 98.4 F 97.7 F Pulse Rate 84 64 Respiratory Rate 21 20 Blood Pressure 128/67 111/62 Pulse Oximetry 94 96 92 08/05/21 11:29 Temperature Pulse Rate Respiratory Rate Blood Pressure Pulse Oximetry 92 Oxygen Delivery Method Nasal Cannula Oxygen Flow Rate 3 Narrative Exam Narrative: 56-year-old female with a flat affect Resp Other: Lungs decreased breath sounds with occasional crackles on exam Cardio Other: Cardiac exam: Regular rate and rhythm normal S1-S2 GI Other: Abdomen soft nontender nondistended Extrem Other: Extremity no edema Objective Labs Result Diagrams: 08/04/21 04:35 08/04/21 04:35 [facility] Medical History (Updated 08/05/21 @ 11:27 by Cherelle Mendes MD) COVID-19 Staghorn kidney stones Social History household members: spouse Smoking Status: Never smoker Discharge Assessment & Plan Assessment and Plan Assessment: Acute respiratory failure secondary to COVID pneumonia Hypothyroidism Chronic urinary tract infection Plan of Treatment: Discharge home on home oxygen Discharge Plan Discharge Plan Patient Disposition: Home Discharge orders & Medications Prescriptions: Continued levothyroxine 125 mcg Tablet 112 mcg PO DAILY RF: 0 liothyronine 5 mcg Tablet 5 mcg PO DAILY RF: 0 amoxicillin-pot clavulanate 500-125 mg Tablet 1 tab PO BID RF: 0 Discharge Health Status Multidrug resistant organism: No MDRO Diet/Activity/Treatments Diet: Diet as Tolerated Skin/Wound/Dressing Care Report to your healthcare provider any signs of infection, such as:: chills, fever Quality VTE Deep Vein Thrombosis/Pulmonary Embolism Present on Admission: No
--- NOTE | 2021-08-05 14:45 | CM.DPC ---
DCP Cont: Patient is discharging home today. Discussed patient this morning during team rounds, and patient wanting to go home. She will need home oxygen upon discharge, as she has been on 5 liters of oxygen, and RT indicated that concentrator can deliver this amount. P: Patient is to discharge home today on home oxygen, with R.T. is setting up. Bebe Olivera RN/Boatbuilder Supervisor
--- NOTE | 2021-08-05 15:45 | PC.NURSE ---
Patient with discharge orders. At the beginning of evening shift patient was adamant to leave teresa. RT sending over fax for patient to have oxygen at her home. Patent did not want to wait. Patient escorted to ride via wheelchair and hospital staff. On the way down to transportation RT stopped us cause she didn't have insurance but patient said she would take care of it at home and was sent with an apnea o2 tank. Patient stated she got all discharge paperwork and education on day shift.
== END 2021-08-05 15:40 | disposition home or self-care (01) | DRG 177 ==
PROVIDERS: Internal Medicine; Admitting Provider Nurse Practitioner Family; Referring Provider Nurse Practitioner Family; Visit Provider Nurse Practitioner Family
DX: U07.1 COVID-19 (principal); J12.82 Pneumonia due to coronavirus disease 2019; J96.01 Acute respiratory failure with hypoxia; Z79.2 Long term (current) use of antibiotics; Z87.440 Personal history of urinary (tract) infections; I95.1 Orthostatic hypotension; E03.9 Hypothyroidism, unspecified
CPT/HCPCS: 36415; 71045; 80048; 80053; 82728; 84145; 85025; 85379; 87797; 94762; J1100; J1644; J2405

== ENCOUNTER 2021-08-06 21:20 | Inpatient (IN) | payer OTHER, SELFPAY ==
[2021-07-31 05:00] VITALS: BMI 30.6
[2021-08-06 22:10] VITALS: BP 89/61; PULSE 82; RESP 31; TEMP 37.8; O2SAT 95
[2021-08-06 22:15] VITALS: BP 89/61; PULSE 114; PULSE 82; RESP 29; RESP 31; TEMP 37.8; O2SAT 93; O2SAT 95
[2021-08-06 22:30] VITALS: BP 89/61; PULSE 112; RESP 32; O2SAT 98
[2021-08-06 22:48] LABS: Hematocrit 39.6 % (36-46); Mean Corpuscular HGB Conc 32.7 % (30-36); Mean Corpuscular Hemoglobin 27.3 PG (26-34); Mean Corpuscular Volume 83.5 fL (80-100); Platelet Count 270 X10^3/uL (150-400); Red Blood Cell Count 4.74 X10^6/uL (4.0-5.2); Red Cell Distribution Width 14.1 % (11.6-14.8); White Blood Cell Count 20.5 X10^3/uL (4.5-11.0)
[2021-08-06 22:55] VITALS: PULSE 112; RESP 32; O2SAT 98
[2021-08-06 22:56] LABS: Lactate (Lactic Acid) 1.5 mmol/L (0.7-2.1)
[2021-08-06 22:57] LABS: Alanine Aminotransferase 15 IU/L (<35); Albumin 2.9 g/dL (3.5-5.0); Albumin Globulin Ratio 0.9 (1.0-2.8); Alkaline Phosphatase 51 U/L (38-126); Aspartate Aminotransferase 35 IU/L (14-36); BUN Creatinine Ratio 15.9 (6-22); Bilirubin Total 0.8 mg/dL (0.2-1.3); Blood Urea Nitrogen 14 mg/dL (7-17); Calcium 7.8 mg/dL (8.4-10.2); Carbon Dioxide 25 mmol/L (22-32); Chloride 108 mmol/L (98-107); Estimated Glomerular Filt Rate > 60.0 mL/min (>60); Globulin 3.2 g/dL (1.7-4.1); Glucose 146 mg/dL (70-100); HEMOLYSIS < 15 (0-50); Potassium 3.8 mmol/L (3.4-5.1); Sodium 137 mmol/L (137-145); Total Protein 6.1 g/dL (6.3-8.2)
[2021-08-06 23:00] VITALS: BP 92/55; PULSE 70; RESP 34; O2SAT 96
[2021-08-06 23:00] LABS: INR 1.6 (0.9-1.3); Prothrombin Time 17.4 SECONDS (10.1-12.7)
[2021-08-06 23:04] LABS: Add Manual Diff / Slide Review YES
[2021-08-06 23:24] LABS: Neutrophils Absolute Manual 19065 /uL (3000-5900); RBC Morphology Normal Morphology; Total Cells Counted 100
--- NOTE | 2021-08-06 23:29 | P.HP_ITS ---
History of Present Illness History of Present Illness Date Patient Seen: 08/06/21 Time Patient Seen: 22:30 Chief complaint: BILATERL PE'S COVID + Narrative: Patient is a 56-year-old female Gloria Yan with a history of hypothyroidism, was Discharged from [facility] less than 24 hours ago for Acute respiratory failure secondary to COVID pneumonia, Hypothyroid, and Chronic urinary tract infection. The patient then presented TODAY to [facility] ED with worsening shortness of breath, hypoxic, her oxygen saturation mid 80s on a non-rebreather she was then placed on high-flow. She has been transferred to [facility] with a diagnosis of bilateral pneumonia, multiple bilateral pulmonary embolisms, acute hypoxic respiratory failure secondary to COVID 19- unvaccinated, with sepsis, and AMBER. I personally reviewed patient's chart note from [facility] potassium 3.1, ion gap 7, creatinine 1.21 GFR 50, albumin 2.6, WBC 21.4, neutrophils 16.7. Chest x-ray demonstrated worsening bilateral pneumonia. VBG: PH 7.39, pCO2 41, PO2 22, PE-1.0, HC03 24, O2 sat 36.7, HGB 15.7, (hs-cTnT) troponin 60 ng/L (range >12-120, value >120 may indicate a ca rdiac event). D-dimer 3900, CTA PE r/o demonstrated worsening multi lobular COVID pneumonia multiple bilateral pulmonary emboli and there is evidence of right heart strain, trace left pararenal fluid possibly suggesting obstruction, pyelonephritis or renal infarct in the setting of hypercoagulability state, in addition small renal stones are present. BNP 42, initial lactate 3.5, magnesium 1.9. Patient's EKG as documented rate 108 sennas tachycardia normal QRS, nonspecific ST and T-wave changes: Comparison to EKG from 07/30/2021 only change noted sinus tachycardia. Upon direct admit to [facility] ICU: Patient is alert and orientated is mildly tachypneic, tachycardic, borderline febrile, anxious, alert and orientated x3, patient is on high-flow 30 L satting 93% at [facility]. The ambulance did not have high-flow and so the patient was placed on 15 L nasal cannula she presented moderately hypoxic, complaining of mild chest discomfort that does not change or worsen with movement activity, it is constant it is a pressure midsternal it does not radiate, not diaphoretic. Patient's initial temp 100.1?, BP 89/61, map 70, HR 112, R 32, O2 saturation 98% on 40 L high- flow. Initial troponin 1.590 Unable to review previous EKGs, current EKG appears consistent with previous findings with the exception of sinus tachycardia rate 116, with nonspecific ST/T changes. Patient was placed on heparin drip at [facility], and continued on drip initially upon admit. Patient was in mild distress, complaining of fever, chills, shortness of breath, dyspnea on exertion, and cough. Denied nasal drainage, sore throat, visual changes, polyuria, rash, myalgia, abdominal pain distension diarrhea, constipation, nausea, vomiting, dysuria, headaches. Patient's initial labs WBC 20.5, with a left shift neutrophils 19,065. Patient's AMBER has resolved potassium now normal at 3.8, creatinine 0.88, GFR >60, lactate 1.5, calcium 7.8 (corrected calcium 9), glucose 146, albumin 2.9. Patient is stable and admitted for acute respiratory failure with hypoxia due to COVID pneumonia resulting in bilateral pulmonary embolus, and sepsis resulting in mild AMBER. Prior to previous admit to [facility] she was also seen in the ED at [facility] and transferred to our facility following diagnosis for COVID pneumonia on July 30/2021. Hospital Course 07/31-08/05/[address] Mendes Patient was admitted to the hospital for acute respiratory failure secondary to COVID pneumonia.? She was placed on Decadron and remdesivir.? Patient completed a 5 day course of therapy.? She remained hypoxic throughout the hospital stay.? Her oxygen saturation remained in the high 80s on 3-5 L. she was tapered down from 5 L and able to be on 3 L at rest.? The patient was anxious to discharge home.? A home O2 eval was obtained.? And the patient was deemed appropriate for discharge home.? She has no complaints of cough shortness of breath or nausea at this time.? Patient will be discharged home on oxygen plans to follow-up with her PCP next week for further evaluation.? At the time of this dictation she is in no acute distress and deemed appropriate for discharge home. Patient History Medical History (Updated 08/07/21 @ 03:43 by SERAFIN Sharma) Acquired hypothyroidism Bilateral pulmonary embolism COVID-19 Obesity (BMI 30.0-34.9) Pneumonia due to COVID-19 virus Staghorn kidney stones Surgical History (Updated 08/07/21 @ 00:52 by SERAFIN Sharma) History of kidney surgery History of lithotripsy Family & Social History Family History (Updated 08/07/21 @ 01:09 by SERAFIN Sharma) Other No family history of disorders Social History: household members spouse Tobacco & Substance use: Smoking Status Never smoker alcohol intake frequency holiday/special occasion Substance Use Type does not use Meds Home Medications and Allergies Home Medications Medication Instructions Recorded Confirmed Type amoxicillin 500 mg-potassium 1 tab PO BID 07/31/21 07/31/21 History clavulanate 125 mg tablet levothyroxine 125 mcg tablet 112 mcg PO DAILY 07/31/21 07/31/21 History liothyronine 5 mcg tablet 5 mcg PO DAILY 07/31/21 07/31/21 History Allergies Allergy/AdvReac Type Severity Reaction Status Date / Time adhesive AdvReac Unknown Verified 07/31/21 12:44 metformin AdvReac Unknown Verified 07/31/21 12:44 IV Contrast Allergy Unknown Uncoded 07/31/21 06:05 Review of Systems Review of Systems Narrative: All 12 point systems reviewed with the patient and are negative except otherwise documented. Exam Vital Signs (past 8 hours): - 08/06/21 22:10 08/06/21 22:15 08/06/21 22:30 Temperature 100.1 F H 100.1 F H Pulse Rate 82 114 H 112 H Respiratory Rate 31 H 29 H 32 H Blood Pressure 89/61 L 89/61 L 89/61 L Pulse Oximetry 95 93 98 08/06/21 22:55 Temperature Pulse Rate 112 H Respiratory Rate 32 H Blood Pressure Pulse Oximetry 98 Fraction of Inspired Oxygen 100 Oxygen Delivery Method Heated High Flow Oxygen Flow Rate 40 Narrative Exam Narrative: General: Patient is a well-developed, well-nourished female in mild distress, but stable at this time HEENT: Normocephalic, atraumatic, extraocular muscles intact, oral pharynx is clear and mucous membranes are dry. Neck is supple and symmetric, trachea is midline, Negative for JVD Chest: Normal AP diameter and contour without kyphoscoliosis, no nasal flaring. Mild occasional retractions, positive tachypneic, increased work of breathing. Lungs: Auscultation of all lung lindo are clear, shallow, diminshed, coarse, greater on the right without adventitious sounds, wheezes, rhonchi, or rales. Cardio: Tachycardic regular rate and rhythm without murmur, rubs, or gallops, no carotid bruit, no cardiac pulsations present. Abdomen: Soft nontender, negative for organomegaly, or masses. Bowel sounds are hyperactive present in all 4 quadrants without guarding or rebound, no CVA tenderness. Musculoskeletal: Muscle strength and tone are equal within normal limits, no deformity, crepitus, effusions, cyanosis, clubbing or edema present. Full range of motion intact radial and pedal pulses are normal. Skin: Very Warm to touch, dry and intact without rashes, ulcerations or petechiae. does have some small brusing present from recent abdominal anticoagulation SQ injections. Neuro: Alert and orientated x3, strength is +5/5 in all extremities, sensation to touch intact, no gross deficits noted of cranial nerves. Psych: Patient has a well-kept appearance, appropriate affect, patient is fairly anxious, and expresses confusion as to why she is sick and how she became sick. Objective Labs Result Diagrams: 08/06/21 22:25 08/06/21 22:25 Labs: Laboratory Results - last 24 hr 08/06/21 08/06/21 08/06/21 22:25 22:25 22:25 WBC 20.5 H RBC 4.74 Hgb 13.0 Hct 39.6 MCV 83.5 MCH 27.3 MCHC 32.7 RDW 14.1 Plt Count 270 Neut % (Auto) Not Reportable Lymph % (Auto) Not Reportable Woodson % (Auto) Not Reportable Eos % (Auto) Not Reportable Baso % (Auto) Not Reportable Lymph # (Auto) Not Reportable Woodson # (Auto) Not Reportable Baso # (Auto) Not Reportable Total Counted 100 Seg Neutrophils % 90.0 H Band Neutrophils % 3.0 Lymphocytes % (Manual) 3.0 L Monocytes % (Manual) 3.0 Eosinophils % (Manual) 1.0 L Neutrophils # (Manual) 17369 H RBC Morphology Normal morphology PT INR Sodium 137 Potassium 3.8 Chloride 108 H Carbon Dioxide 25 BUN 14 Creatinine 0.88 Estimated GFR > 60.0 BUN/Creatinine Ratio 15.9 Glucose 146 H Lactate 1.5 Calcium 7.8 L Total Bilirubin 0.8 AST 35 ALT 15 Alkaline Phosphatase 51 Total Protein 6.1 L Albumin 2.9 L Globulin 3.2 Albumin/Globulin Ratio 0.9 L 08/06/21 22:25 WBC RBC Hgb Hct MCV MCH MCHC RDW Plt Count Neut % (Auto) Lymph % (Auto) Woodson % (Auto) Eos % (Auto) Baso % (Auto) Lymph # (Auto) Woodson # (Auto) Baso # (Auto) Total Counted Seg Neutrophils % Band Neutrophils % Lymphocytes % (Manual) Monocytes % (Manual) Eosinophils % (Manual) Neutrophils # (Manual) RBC Morphology PT 17.4 H INR 1.6 H Sodium Potassium Chloride Carbon Dioxide BUN Creatinine Estimated GFR BUN/Creatinine Ratio Glucose Lactate Calcium Total Bilirubin AST ALT Alkaline Phosphatase Total Protein Albumin Globulin Albumin/Globulin Ratio Assessment & Plan Assessment & Plan narrative: Patient is a 56-year-old female Gloria Yan with a history of hypothyroidism, was Discharged from [facility] less than 24 hours ago for Acute respiratory failure secondary to COVID pneumonia, Hypothyroid, and Chronic urinary tract infection. The patient then presented TODAY to [facility] ED with worsening shortness of breath, hypoxic, her oxygen saturation mid 80s on a non-rebreather she was then placed on high-flow. She was then transferred to [facility] and admitted to the ICU with a diagnosis of bilateral pneumonia, multiple bilateral pulmonary embolisms, acute hypoxic respiratory failure secondary to COVID 19-unvaccinated, with sepsis, and AMBER. 1. Acute hypoxic respiratory failure secondary to worsening Bilateral pneumonia due to COVID-19 virus, resulting in multiple bilateral subsegmental pulmonary embolus is without acute cor pulmonale, further resulting in sepsis and AMBER, acute, present on admission -patient meets SIRS and sepsis criteria on Transfer admit to [facility]. On admit SOFA:3 Tachypneic, tachycardic, hypoxic, and febrile on admission. -AMBER resolved, Lactate normalized. -[facility] initiated: 6 mg dexamethasone, Rocephin 1g, Sepsis fluid resuscitation protocol, heparin drip, CTA -neg for PE, and blood cultures drawn. -arrived on initial heparin drip for bilateral PE's, to be transitioned onto SQ lovenox 1mg/kg (100mg) Q12 hrs. Restart 6mg dexamethasone. -Dr. Hargrove tele sales and service advisor was consulted prior to accepting patient to the hospital service, who agreed to admission. ICU consult. -BP's remained soft with maps 60-63, ordered Vasopression 0.01/kg/hr to be started if Map <65 sustained greater than 30min. May tolerate a MAP 60 if urinary output is adequte urinary output > 0.5 cc/kg/hr (50cc/hr), cbc, cmp, lactate. -initial troponin 1.590, EKG appears consistent with previous findings with the exception of sinus tachycardia rate 116, with nonspecific ST/T changes. Patient is stable and a symptomatic of ACS or cardiac instablility. -catheter placed to decrease oxygen demand from activity and movement, as well as trach accurate I&O. -Ordered respiratory consult-patient on heated high-flow 40L/90%, albuterol HFA inhaler 2 puffs q.4 hours as needed for cough or shortness of breath, spirometry, - ordered to encourage proning, pain medication as needed for comfort to facilitate proning. Ativan PRN for anxiety. -Repeat ABG, Troponin, cbc, cmp, Mag in am. 2. Chronic urinary tract infections, secondary to chronic renal calculi, acute on chronic, present on admission -CTA -6 mm left renal pelvis stone. Left mid kidney stone with adjacent scarring. There may be fluid adjacent to the left kidney. Remote CT from 10/11 2016 showed a staghorn calculus in the left kidney visualized branches of the upper left and mid kidney are patent. Revealed trace left pararenal fluid, fin dings could reflect obstruction pyelonephritis or renal infarct in the setting of hypocoagulable state. -catheter placed, urinary culture ordered to rule out UTI/pyelonephritis complication. 3. Hypothyroidism, acquired, chronic, present on admission -continue patient's levothyroxine 4. Obesity as evidence by BMI of 30, acute on chronic present on admission -consideration will be given to dietary counseling Code status:Full Surrogate decision maker: Spouse POA COVID PCR:POSITIVE COVID vaccination: Unvaccinated DVT/VTE prophylaxis:Heparin drip & SCD's Disposition: Patient has been readmitted to the ICU for significant complications from COVID pneumonia, expected length of stay greater than 2 midnights. I have utilized all available immediate resources to obtain, update, or review the patient's current medications. I confirmed that the patient's advanced care plan is present, Code status is documented and/or surrogate decision maker is listed in the patient's medical record. Time Spent With Patient Critical Care time: I spent a total of [] minutes of critical care time on this patient's care today; this time is exclusive of procedural time. Quality VTE Deep Vein Thrombosis/Pulmonary Embolism Present on Admission: Yes
[2021-08-06 23:53] LABS: PTT Partial Thromboplastin Tim > 400 SECONDS (26.4-36.2)
--- NOTE | 2021-08-06 23:59 | P.TELICUCN_ITS ---
History of Present Illness Consult details Date Patient Seen: 08/06/21 Chief complaint: BILATERL PE'S COVID + :: This patient was seen via real time interactive two-way audiovisual telecommu nication. 56 y.o. female who presented to an outside ED with worsening SOB. She was discharged from [facility] on home O2 following a hospitalization for COVID-19 pneumonia. She completed a 5 day course of remdesivir. Workup at the outside ED revealed AMBER asnd bilateral subsegmental PE with RV strain. Since arrival at ICU, her creatinine has normalized and she is saturating mid- 90s on 40 L/min 100% HFNC. She is having some substernal chest discomfort but reports anxiety; I have requested an EKG. Medical comorbidities = hypothyroidism and nephrolithasis. [facility] Medical History COVID-19 [place] kidney stones Social History household members: spouse Smoking Status: Never smoker Current Medications Current Medications Medications: Home Medications amoxicillin 500 mg-potassium clavulanate 125 mg tablet 1 tab PO BID 07/31/21 [History Confirmed 07/31/21] levothyroxine 125 mcg tablet 112 mcg PO DAILY 07/31/21 [History Confirmed 07/31/21] liothyronine 5 mcg tablet 5 mcg PO DAILY 07/31/21 [History Confirmed 07/31/21] Exam Vital Signs (past 8 hours): - 08/06/21 22:10 08/06/21 22:15 08/06/21 22:30 Temperature 100.1 F H 100.1 F H Pulse Rate 82 114 H 112 H Respiratory Rate 31 H 29 H 32 H Blood Pressure 89/61 L 89/61 L 89/61 L Pulse Oximetry 95 93 98 08/06/21 22:55 Temperature Pulse Rate 112 H Respiratory Rate 32 H Blood Pressure Pulse Oximetry 98 Fraction of Inspired Oxygen 100 Oxygen Delivery Method Heated High Flow Oxygen Flow Rate 40 Const General: cooperative and comfortable Resp Effort & Inspection: normal respiratory effort and able to speak in complete sentences Cardio Rhythm: other (sinus tachycardia on monitor) Neuro General: patient alert, patient awake and patient oriented x3 Cognition: normal cognition Speech: speech normal Objective Labs Result Diagrams: 08/06/21 22:25 08/06/21 22:25 Labs: Laboratory Results - last 24 hr 08/06/21 08/06/21 08/06/21 22:25 22:25 22:25 WBC 20.5 H RBC 4.74 Hgb 13.0 Hct 39.6 MCV 83.5 MCH 27.3 MCHC 32.7 RDW 14.1 Plt Count 270 Neut % (Auto) Not Reportable Lymph % (Auto) Not Reportable [place] % (Auto) Not Reportable Eos % (Auto) Not Reportable Baso % (Auto) Not Reportable Lymph # (Auto) Not Reportable [place] # (Auto) Not Reportable Baso # (Auto) Not Reportable Total Counted 100 Seg Neutrophils % 90.0 H Band Neutrophils % 3.0 Lymphocytes % (Manual) 3.0 L Monocytes % (Manual) 3.0 Eosinophils % (Manual) 1.0 L Neutrophils # (Manual) 40677 H RBC Morphology Normal morphology PT INR APTT Sodium 137 Potassium 3.8 Chloride 108 H Carbon Dioxide 25 BUN 14 Creatinine 0.88 Estimated GFR > 60.0 BUN/Creatinine Ratio 15.9 Glucose 146 H Lactate 1.5 Calcium 7.8 L Total Bilirubin 0.8 AST 35 ALT 15 Alkaline Phosphatase 51 Troponin I 1.590 H* Total Protein 6.1 L Albumin 2.9 L Globulin 3.2 Albumin/Globulin Ratio 0.9 L 08/06/21 22:25 WBC RBC Hgb Hct MCV MCH MCHC RDW Plt Count Neut % (Auto) Lymph % (Auto) [place] % (Auto) Eos % (Auto) Baso % (Auto) Lymph # (Auto) [place] # (Auto) Baso # (Auto) Total Counted Seg Neutrophils % Band Neutrophils % Lymphocytes % (Manual) Monocytes % (Manual) Eosinophils % (Manual) Neutrophils # (Manual) RBC Morphology PT 17.4 H INR 1.6 H APTT > 400 H* Sodium Potassium Chloride Carbon Dioxide BUN Creatinine Estimated GFR BUN/Creatinine Ratio Glucose Lactate Calcium Total Bilirubin AST ALT Alkaline Phosphatase Troponin I Total Protein Albumin Globulin Albumin/Globulin Ratio Assessment & Plan Assessment and plan (1) Pulmonary embolism associated with COVID-19: Problem details: Given troponin elevation and RV strain on outside hospital pulmonary CTA, she meets some criteria for submassive PE. However, increased O2 requirement may not entirely due to PE given COVID-19. Status: Acute Plan: -She arrived on IV heparin; given creatinine normalization, she can be switched to full--dose enoxaparin -Obtain 2-D echo and LE doppler as soon as possible -MAPs are borderline, OK to start low-dose vasopressin; place PICC/CVC as soon as possible; target MAP >= 60 mm Hg (2) Acute respiratory failure with hypoxia: Problem details: Due to COVID-19. She completed a remdesivir course. Status: Acute Plan: -Resume dexamethasone; follow for steroid-induced hyperglycemia (3) Hypothyroidism: Status: Acute Plan: -Continue thyroid replacement (4) Elevated troponin: Problem details: Ddx includes RV myonecrosis, ACS, type 2 MO. Whatever the cause, the elevation is likely worsened by the creatinine elevation reported at outside ED Status: Acute Plan: -Check EKG -Trend values; if follow-up values rise significantly, would consider transfer -Obtain 2-D echo GRAEME as stated earlier -Already on anticoagulation; OK to give baby ASA x 1 as well as statin given fact that ACS is in the differential diagnosis (5) Elevated lactic acid level: Problem details: Elevated at outside ED; now normal Status: Acute Plan: -Follow Time Spent With Patient Critical Care time: I spent a total of 35 minutes of critical care time on this patient's care today; this time is exclusive of procedural time.
[2021-08-07] VITALS (48 sets, daily range): BP systolic 83–119; BP diastolic 51–78; PULSE 57–104; RESP 9–33; TEMP 36.4–37.8; O2SAT 62–98
--- NOTE | 2021-08-07 00:01 | DI.US.S_ITS ---
PROCEDURE: US PERIPH VENOUS LOW EXTREM BI INDICATIONS: COVID POSITIVE. MULTIPLE PULMONARY EMBOLISMS. TECHNIQUE: Real-time imaging, as well as color and pulse Doppler interrogation, were performed of the deep veins of both legs from the inguinal ligament to the popliteal fossa. COMPARISON: None. FINDINGS: Right: The common femoral, femoral and popliteal veins are normally compressible, and free of intraluminal thrombus. Color and pulse Doppler demonstrate normal phasic intravascular flow. There is normal augmentation response to distal compression maneuver. Left: The common femoral and popliteal veins are normally compressible. The distal femoral vein demonstrates internal heterogeneity and noncompressible Color and pulse Doppler demonstrate normal phasic intravascular flow. IMPRESSION: Findings concerning for deep venous thrombosis within the distal superficial vein on the left. Dictated by: Ilya Mcmillan D.O. on 08/07/2021 at 8:32 Approved by: Ilya Mcmillan D.O. on 08/07/2021 at 8:35
--- NOTE | 2021-08-07 00:02 | DI.ECHO.S_ITS ---
[facility]---------+ [facility] +---------+ : : [address] : : : : [id number] : : : : Phone: [phone] Echocardiogram Report + + :Name: DASH DUEÑAS Study Date: 08/07/2021 Height: 72 in : :[facility] ReadingLocation: Weight: 221 lb: : Gender: Female BSA: 2.2 m2 : :: 1965 Age: 56 yrs BP: 91/53 mmHg: :Reason For Study: Bilateral Pulmonary Embolism : :Ordering Physician: Sue : :Hospitalist Performed By: Sveta Dumont : :Referring: PATRICE FERNANDES : + + Interpretation Summary 1) Normal left ventricular size, thickness, and systolic function (EF 55-60%). 2) The interventricular septum is flattened, consistent with a right ventricular pressure overload condition. 3) The right ventricle is not well visualized, but appears to be moderately dilated with moderately reduced function. 4) The right ventricular systolic pressure is estimated to be at least 63 mmHg based on an estimated right atrial pressure of 15 mm Hg. 5) No prior Echo available for comparison. Procedure: A two-dimensional transthoracic echocardiogram with color flow and Doppler was performed. Most of the acoustic windows were suboptimal, but the best imaging was obtained from the parasternal window. A contrast injection of Definity was performed to improve assessment of LV function. There is no prior echocardiogram noted for this patient. Heart rate and rhythm are not recorded due to limiting equipment brought into an Airborne precaution room. Left Ventricle: The left ventricle is normal in size and wall thickness. The ejection fraction is estimated to be 55-60%. There are no obvious focal wall motion abnormalities noted but poor endocardial definition reduces the sensitivity for the detection of such. The interventricular septum is flattened, consistent with a right ventricular pressure overload condition. Right Ventricle: The right ventricle is not well visualized, but appears to be moderately dilated with moderately reduced function. Atria: The left atrium grossly appears normal in size. The right atrium grossly appears normal in size. There is no Doppler evidence for an interatrial shunt. Mitral Valve: The mitral valve is normal in structure and function. There is no mitral regurgitation noted. Aortic Valve: The aortic valve is not well visualized. The aortic valve opens well. There is no aortic valve stenosis. No aortic regurgitation is present. Tricuspid Valve: The tricuspid valve is not well visualized, but is grossly normal. There is mild tricuspid regurgitation. The right ventricular systolic pressure is estimated to be at least 63 mmHg based on an estimated right atrial pressure of 15 mm Hg. Pulmonic Valve: The pulmonic valve is not well visualized. Great Vessels: The aortic root is normal size. The ascending aorta is normal in size. The aortic arch is normal in size. The IVC is dilated (diameter is greater than 2.1 cm) and it collapses less than 50% with a sniff. This suggests a high right atrial pressure of 15 mm Hg. Pericardium/ Pleura There is no pericardial effusion. MMode/2D Measurements & Calculations LVIDd: 3.9 cm LVOT diam: 2.0 cm LVIDs: 2.7 cm Ao root diam: 3.2 cm FS: 30.7 % asc Aorta Diam: 3.1 cm EPSS: 0.18 cm Ao Arch Diam (Prox Trans): 2.4 cm IVSd: 0.86 cm LVPWd: 0.69 cm LV morataya. diameter/BSA (cm/m^2): 1.7 LV sys. diameter/BSA (cm/m^2): 1.2 LA A4 area: 14.6 cm2 RA long axis: 5.0 cm LA length (vol): 6.5 cm RA area: 17.6 cm2 RA vol: 52.8 ml RA : 23.8 ml/m2 IVC diam: 2.5 cm Doppler Measurements & Calculations Ao V2 max: 118.0 cm/sec LVOT Max Ludin: 77.3 cm/sec Ao V2 mean: 80.7 cm/sec LV V1 max P.4 mmHg Ao max P.6 mmHg LV V1 VTI: 12.9 cm Ao mean P.9 mmHg AMELIA(I,D): 2.1 cm2 Ao V2 VTI: 19.5 cm AMELIA(V,D): 2.1 cm2 sev ratio: 0.66 AMELIA indexed to BSA (cm^2/m^2): 0.95 MV E max ludin: 37.6 cm/sec TR max ludin: 347.2 cm/sec MV A max ludin: 53.4 cm/sec TR max P.2 mmHg MV E/A: 0.70 PA V2 max: 64.7 cm/sec Med Peak E' Ludin: 7.3 cm/sec PA V2 mean: 43.1 cm/sec E/E' med: 5.1 PA mean P.81 mmHg Lat Peak E' Ludin: 9.7 cm/sec PA pr(Accel): 61.0 mmHg E/E' lat: 3.9 E/e' average: 4.5 MV dec time: 0.20 sec SV(LVOT): 41.1 ml Reading Physician:03:23 PM
[2021-08-07] MEDS: LORazepam 0.5 MG TABLET PO ×2 (00:14→06:10)
[2021-08-07] MEDS: ACETAMINOPHEN 325 MG TABLET 650 MG PO ×2 (00:14→20:30)
--- NOTE | 2021-08-07 03:29 | DI.RAD.S_ITS ---
PROCEDURE: XR CHEST 1V INDICATIONS: Central line placement TECHNIQUE: One view of the chest was acquired. COMPARISON: [facility], CR, XR CHEST 1V, 08/03/2021, 8:15. FINDINGS: Surgical changes and devices: Interval placement of a left-sided PICC line with the tip projecting over the expected location of the superior cavoatrial junction. Overlying EKG wires. Lungs and pleura: Diffuse interstitial and airspace opacities are grossly unchanged. No significant pleural effusion. No pneumothorax. Mediastinum: Mediastinal contours appear normal. Heart size is normal. Bones and chest wall: No suspicious bony lesions. Overlying soft tissues appear unremarkable. IMPRESSION: PICC line in appropriate position with the tip overlying the expected location of the superior cavoatrial junction. Stable appearance of bilateral interstitial and airspace opacities. Dictated by: Ilya Mcmillan D.O. on 08/07/2021 at 6:19 Approved by: Ilya Mcmillan D.O. on 08/07/2021 at 6:21
[2021-08-07 04:54] LABS: Add Manual Diff / Slide Review NO; Basophils Absolute Auto 100 /uL (0-100); Basophils Percent Auto 0.3 % (0-2); Eosinophils Absolute Auto 0 /uL (0-450); Eosinophils Percent Auto 0.2 % (2-4); Hematocrit 37.8 % (36-46); Hemoglobin 12.4 g/dL (12.0-16.0); Lymphocytes Absolute Auto 800 /uL (1100-4500); Lymphocytes Percent Auto 4.8 % (25-40); Mean Corpuscular HGB Conc 32.8 % (30-36); Mean Corpuscular Hemoglobin 27.2 PG (26-34); Monocytes Absolute Auto 700 /uL (0-900); Monocytes Percent Auto 4.3 % (3-14); Neutrophils Absolute Auto 14200 /uL (1500-7000); Neutrophils Percent Auto 90.4 % (50-75); Platelet Count 229 X10^3/uL (150-400); Red Blood Cell Count 4.56 X10^6/uL (4.0-5.2); Red Cell Distribution Width 14.1 % (11.6-14.8); White Blood Cell Count 15.7 X10^3/uL (4.5-11.0)
[2021-08-07 05:00] LABS: PTT Partial Thromboplastin Tim 37 SECONDS (26.4-36.2)
[2021-08-07 05:03] LABS: Alanine Aminotransferase 15 IU/L (<35); Albumin 2.8 g/dL (3.5-5.0); Albumin Globulin Ratio 0.9 (1.0-2.8); Alkaline Phosphatase 43 U/L (38-126); Aspartate Aminotransferase 30 IU/L (14-36); BUN Creatinine Ratio 22.2 (6-22); Bilirubin Total 0.7 mg/dL (0.2-1.3); Blood Urea Nitrogen 16 mg/dL (7-17); Carbon Dioxide 24 mmol/L (22-32); Chloride 107 mmol/L (98-107); Estimated Glomerular Filt Rate > 60.0 mL/min (>60); Globulin 3.2 g/dL (1.7-4.1); Glucose 146 mg/dL (70-100); HEMOLYSIS < 15 (0-50); Magnesium 1.9 mg/dL (1.6-2.3); Sodium 137 mmol/L (137-145)
[2021-08-07 05:17] LABS: HCO3 ABG 23 mmol/L (22-26); Oxygen Saturation ABG 97 % (95-100); PCO2 ABG 34.9 mmHg (35-45); PO2 ABG 91 mmHg (80-100); TCO2 ABG 24 mmol/L (21-31); pH ABG 7.43 (7.35-7.45)
[2021-08-07 05:18] LABS: Fractionated Inspired Oxygen 70
[2021-08-07] MEDS: PANTOPRAZOLE DR 20 MG TABLET PO ×2 (06:10→23:28)
[2021-08-07] MEDS: ENOXAPARIN 100 MG/ML SYRINGE SUBCUT ×2 (09:01→20:29)
[2021-08-07] MEDS: DEXAMETHASONE 10 MG/ML VIAL 6 MG IV (09:01)
[2021-08-07] MEDS: ASPIRIN EC 81 MG TABLET PO (09:01)
--- NOTE | 2021-08-07 10:01 | P.TELICUPN_ITS ---
Subjective Subjective :: This patient was seen via real time interactive two-way audiovisual telecommunication. still with some chest discomfort some difficulty taking deep breath Current Medications Current Medications Medications: Home Medications amoxicillin 500 mg-potassium clavulanate 125 mg tablet 1 tab PO BID 07/31/21 [History Confirmed 07/31/21] levothyroxine 125 mcg tablet 112 mcg PO DAILY 07/31/21 [History Confirmed 07/31/21] liothyronine 5 mcg tablet 5 mcg PO DAILY 07/31/21 [History Confirmed 07/31/21] Visit Medications (administered) Generic Name Dose Route Start Last Admin Trade Name Freq PRN Reason Stop Dose Admin Acetaminophen 650 mg 08/06/21 22:41 08/07/21 00:14 Acetaminophen 325 Mg Tablet PO 650 mg Q6HR PRN Administration Fever/Mild Pain (1-3) Aspirin 81 mg 08/07/21 09:00 08/07/21 09:01 Aspirin Ec 81 Mg Tablet PO 81 mg DAILY GUSTAVO Administration Dexamethasone 6 mg 08/07/21 09:00 08/07/21 09:01 Dexamethasone 10 Mg/Ml Vial IV 6 mg DAILY GUSTAVO Administration Enoxaparin Sodium 100 mg 08/07/21 09:00 08/07/21 09:01 Enoxaparin 100 Mg/Ml Syringe SUBCUT 100 mg BID GUSTAVO Administration Vasopressin 40 unit/ Sodium 102 mls @ 1 mls/hr 08/06/21 23:45 08/07/21 09:01 Chloride IV Not Given CONT GUSTAVO Lorazepam 0.5 mg 08/06/21 22:46 08/07/21 06:10 Lorazepam 0.5 Mg Tablet PO 0.5 mg Q4HR PRN Administration Anxiety Pantoprazole Sodium 20 mg 08/07/21 07:00 08/07/21 06:[address] 20 Mg Tablet PO 20 mg 0700,2100 GUSTAVO Administration Objective Labs Result Diagrams: 08/07/21 04:40 08/07/21 04:40 Labs: Laboratory Results - last 24 hr 08/06/21 08/06/21 08/06/21 22:25 22:25 22:25 WBC 20.5 H RBC 4.74 Hgb 13.0 Hct 39.6 MCV 83.5 MCH 27.3 MCHC 32.7 RDW 14.1 Plt Count 270 Neut % (Auto) Not Reportable Lymph % (Auto) Not Reportable [place] % (Auto) Not Reportable Eos % (Auto) Not Reportable Baso % (Auto) Not Reportable Neut # (Auto) Lymph # (Auto) Not Reportable [place] # (Auto) Not Reportable Eos # (Auto) Baso # (Auto) Not Reportable Total Counted 100 Seg Neutrophils % 90.0 H Band Neutrophils % 3.0 Lymphocytes % (Manual) 3.0 L Monocytes % (Manual) 3.0 Eosinophils % (Manual) 1.0 L Neutrophils # (Manual) 12072 H RBC Morphology Normal morphology PT INR APTT ABG pH ABG pCO2 ABG pO2 ABG HCO3 ABG Total CO2 ABG O2 Saturation ABG Base Excess FiO2 Sodium 137 Potassium 3.8 Chloride 108 H Carbon Dioxide 25 BUN 14 Creatinine 0.88 Estimated GFR > 60.0 BUN/Creatinine Ratio 15.9 Glucose 146 H Lactate 1.5 Calcium 7.8 L Magnesium Total Bilirubin 0.8 AST 35 ALT 15 Alkaline Phosphatase 51 Troponin I 1.590 H* Total Protein 6.1 L Albumin 2.9 L Globulin 3.2 Albumin/Globulin Ratio 0.9 L 08/06/21 08/07/21 08/07/21 22:25 04:40 04:40 WBC 15.7 H RBC 4.56 Hgb 12.4 Hct 37.8 MCV 83.0 MCH 27.2 MCHC 32.8 RDW 14.1 Plt Count 229 Neut % (Auto) 90.4 H Lymph % (Auto) 4.8 L [place] % (Auto) 4.3 Eos % (Auto) 0.2 L Baso % (Auto) 0.3 Neut # (Auto) 45667 H Lymph # (Auto) 800 L [place] # (Auto) 700 Eos # (Auto) 0 Baso # (Auto) 100 Total Counted Seg Neutrophils % Band Neutrophils % Lymphocytes % (Manual) Monocytes % (Manual) Eosinophils % (Manual) Neutrophils # (Manual) RBC Morphology PT 17.4 H INR 1.6 H APTT > 400 H* ABG pH ABG pCO2 ABG pO2 ABG HCO3 ABG Total CO2 ABG O2 Saturation ABG Base Excess FiO2 Sodium 137 Potassium 4.0 Chloride 107 Carbon Dioxide 24 BUN 16 Creatinine 0.72 Estimated GFR > 60.0 BUN/Creatinine Ratio 22.2 H Glucose 146 H Lactate Calcium 8.0 L Magnesium 1.9 Total Bilirubin 0.7 AST 30 ALT 15 Alkaline Phosphatase 43 Troponin I 1.180 H* Total Protein 6.0 L Albumin 2.8 L Globulin 3.2 Albumin/Globulin Ratio 0.9 L 08/07/21 08/07/21 04:40 04:55 WBC RBC Hgb Hct MCV MCH MCHC RDW Plt Count Neut % (Auto) Lymph % (Auto) [place] % (Auto) Eos % (Auto) Baso % (Auto) Neut # (Auto) Lymph # (Auto) [place] # (Auto) Eos # (Auto) Baso # (Auto) Total Counted Seg Neutrophils % Band Neutrophils % Lymphocytes % (Manual) Monocytes % (Manual) Eosinophils % (Manual) Neutrophils # (Manual) RBC Morphology PT INR APTT 37 H D ABG pH 7.43 ABG pCO2 34.9 L ABG pO2 91 ABG HCO3 23 ABG Total CO2 24 ABG O2 Saturation 97 ABG Base Excess -1.0 FiO2 70 Sodium Potassium Chloride Carbon Dioxide BUN Creatinine Estimated GFR BUN/Creatinine Ratio Glucose Lactate Calcium Magnesium Total Bilirubin AST ALT Alkaline Phosphatase Troponin I Total Protein Albumin Globulin Albumin/Globulin Ratio Exam Vital Signs (past 8 hours): - 08/07/21 02:30 08/07/21 03:00 08/07/21 04:00 Temperature 98.0 F Pulse Rate 96 H 94 H 86 Respiratory Rate 28 H 28 H 33 H Blood Pressure 83/51 L 89/56 L 88/53 L Pulse Oximetry 95 97 96 08/07/21 04:40 08/07/21 05:00 08/07/21 06:00 Temperature Pulse Rate 87 90 81 Respiratory Rate 26 H 29 H 27 H Blood Pressure 88/53 L 96/65 106/60 Pulse Oximetry 95 94 91 08/07/21 08:00 08/07/21 08:15 Temperature Pulse Rate 92 H Respiratory Rate 28 H Blood Pressure Pulse Oximetry 93 93 Fraction of Inspired Oxygen 70 Oxygen Delivery Method Heated High Flow Oxygen Flow Rate 40 Quality TeleICU VTE Deep Vein Thrombosis/Pulmonary Embolism Present on Admission: Yes Assessment & Plan Assessment & Plan narrative: patient seen and examined on MTD rounds with bedside MD and nursing staff pt appears comfortable in no distress however pt is tentative taking a deep prosper th due to discomfort afebrile, HD stable, high flow 40L 70% trop remain elevated a/p acute respiratory failure 2/2 to pulmonary embolism possible right heart strain 2/2 to clot burden chronic respiratory failure 2/2 to covid pna plan -check serial ekg/trop -check echo stat -if signs of any strain noted, suggest transfer for IR eval for possible embolectomy -full anticoagulation -wean o2 support as tolerated -maintain map above 65 =continue steroids Time Spent With Patient Critical Care time: I spent a total of [] minutes of critical care time on this patient's care today; this time is exclusive of procedural time.
--- NOTE | 2021-08-07 10:18 | PC.NURSE ---
INITIAL ASSESSMENT COMPLETED @ 0800 - PT IS ALERT/ORIENTED AND SOMEWHAT FLAT AFFECT- SHE APPEARS SCARED TO THIS RN, MUCH TIME SPENT WITH PT EXPLAINING HER CONDITION AND TREATMENT OF BOTH COVID PNA AND BILATERAL PULMONARY EMBOLI- PT NOW RECEIVING SQ LOVENOX RATHER THAN IV HEPARIN ORDERED PREVIOUSLY, ALSO ULTRASOUND EVIDENCED LEFT DVT OF LE. SHE PRESENTLY IS ON HEATED HIGH FLOW O2 @ 40L/70% WITH SPO2 90-95% - PT ENDORSES MILD CHEST PRESSURE NOT CHEST PAIN AND UNABLE TO PRONE - 2 LUMEN PICC LINE TO ANUP WELL BILAT PERIPHERAL IV ACCESS
--- NOTE | 2021-08-07 14:20 | P.PN_ITS ---
Subjective Subjective Date Patient Seen: 08/07/21 Time Patient Seen: 14:20 Interval history: Patient states she is scared. Shortness of breath improved this afternoon slightly, stable on 40L, 70% fio2. Chest pressure improved over the day. Patient with evidence of R heart strain on CT. Attempting to transfer for IR embolization evaluation however no beds available. Exam Vital Signs (past 8 hours): - 08/07/21 08:00 08/07/21 08:15 08/07/21 09:00 Pulse Rate 80 92 H 91 H Respiratory Rate 28 H 28 H 27 H Blood Pressure 95/56 L 99/57 L Pulse Oximetry 62 L 93 92 08/07/21 10:00 08/07/21 11:00 08/07/21 12:45 Pulse Rate 93 H 81 94 H Respiratory Rate 31 H 27 H 28 H Blood Pressure 97/61 91/53 L Pulse Oximetry 94 96 94 08/07/21 12:51 08/07/21 13:00 08/07/21 14:09 Pulse Rate 90 85 86 Respiratory Rate 31 H 24 22 Blood Pressure 95/62 90/55 L 98/66 Pulse Oximetry 88 L 95 96 Fraction of Inspired Oxygen 70 Oxygen Delivery Method Heated High Flow Oxygen Flow Rate 40 Narrative Exam Narrative: GENERAL APPEARANCE: Well developed, well nourished, anxious but also flat. SKIN: Inspection of the skin reveals no rashes, ulcerations or petechiae. HEENT: Normocephalic atraumatic, extraocular muscles are intact, oropharynx is clear and mucous membranes are moist. NECK: Supple and trachea midline. CHEST: Normal AP diameter and normal contour without any kyphoscoliosis. LUNGS: no obvious wheezing, rhonchi, or rales bilaterally. CARDIOVASCULAR: There was a regular rate and rhythm without any murmurs, gallops, rubs. Peripheral pulses were 2+ and symmetric. ABDOMEN: S, NT, ND MUSCULOSKELETAL: There was no tenderness or effusions noted. Muscle strength and tone were normal. EXTREMITIES: No cyanosis, clubbing or edema. NEUROLOGIC: Alert and oriented x 3. flat but anxious. Strength is +5/5 in the Upper Extremities and Lower Extremities Bilaterally. Sensation to touch was normal. Objective ECG Impression: sinus tachycardia. Imaging CT scan - chest: Radiologist's impression: CTA PE r/o demonstrated worsening multi lobular COVID pneumonia multiple bilateral pulmonary emboli and there is evidence of right heart strain, trace left pararenal fluid possibly suggesting obstruction, pyelonephritis or renal infarct in the setting of hypercoagulability state, in addition small renal stones are present. Labs Result Diagrams: 08/07/21 04:40 08/07/21 04:40 Labs: Laboratory Results - last 24 hr 08/06/21 08/06/21 08/06/21 22:25 22:25 22:25 WBC 20.5 H RBC 4.74 Hgb 13.0 Hct 39.6 MCV 83.5 MCH 27.3 MCHC 32.7 RDW 14.1 Plt Count 270 Neut % (Auto) Not Reportable Lymph % (Auto) Not Reportable [place] % (Auto) Not Reportable Eos % (Auto) Not Reportable Baso % (Auto) Not Reportable Neut # (Auto) Lymph # (Auto) Not Reportable [place] # (Auto) Not Reportable Eos # (Auto) Baso # (Auto) Not Reportable Total Counted 100 Seg Neutrophils % 90.0 H Band Neutrophils % 3.0 Lymphocytes % (Manual) 3.0 L Monocytes % (Manual) 3.0 Eosinophils % (Manual) 1.0 L Neutrophils # (Manual) 67653 H RBC Morphology Normal morphology PT INR APTT ABG pH ABG pCO2 ABG pO2 ABG HCO3 ABG Total CO2 ABG O2 Saturation ABG Base Excess FiO2 Sodium 137 Potassium 3.8 Chloride 108 H Carbon Dioxide 25 BUN 14 Creatinine 0.88 Estimated GFR > 60.0 BUN/Creatinine Ratio 15.9 Glucose 146 H Lactate 1.5 Calcium 7.8 L Magnesium Total Bilirubin 0.8 AST 35 ALT 15 Alkaline Phosphatase 51 Troponin I 1.590 H* Total Protein 6.1 L Albumin 2.9 L Globulin 3.2 Albumin/Globulin Ratio 0.9 L 08/06/21 08/07/21 08/07/21 22:25 04:40 04:40 WBC 15.7 H RBC 4.56 Hgb 12.4 Hct 37.8 MCV 83.0 MCH 27.2 MCHC 32.8 RDW 14.1 Plt Count 229 Neut % (Auto) 90.4 H Lymph % (Auto) 4.8 L [place] % (Auto) 4.3 Eos % (Auto) 0.2 L Baso % (Auto) 0.3 Neut # (Auto) 86103 H Lymph # (Auto) 800 L [place] # (Auto) 700 Eos # (Auto) 0 Baso # (Auto) 100 Total Counted Seg Neutrophils % Band Neutrophils % Lymphocytes % (Manual) Monocytes % (Manual) Eosinophils % (Manual) Neutrophils # (Manual) RBC Morphology PT 17.4 H INR 1.6 H APTT > 400 H* ABG pH ABG pCO2 ABG pO2 ABG HCO3 ABG Total CO2 ABG O2 Saturation ABG Base Excess FiO2 Sodium 137 Potassium 4.0 Chloride 107 Carbon Dioxide 24 BUN 16 Creatinine 0.72 Estimated GFR > 60.0 BUN/Creatinine Ratio 22.2 H Glucose 146 H Lactate Calcium 8.0 L Magnesium 1.9 Total Bilirubin 0.7 AST 30 ALT 15 Alkaline Phosphatase 43 Troponin I 1.180 H* Total Protein 6.0 L Albumin 2.8 L Globulin 3.2 Albumin/Globulin Ratio 0.9 L 08/07/21 08/07/21 04:40 04:55 WBC RBC Hgb Hct MCV MCH MCHC RDW Plt Count Neut % (Auto) Lymph % (Auto) [place] % (Auto) Eos % (Auto) Baso % (Auto) Neut # (Auto) Lymph # (Auto) [place] # (Auto) Eos # (Auto) Baso # (Auto) Total Counted Seg Neutrophils % Band Neutrophils % Lymphocytes % (Manual) Monocytes % (Manual) Eosinophils % (Manual) Neutrophils # (Manual) RBC Morphology PT INR APTT 37 H D ABG pH 7.43 ABG pCO2 34.9 L ABG pO2 91 ABG HCO3 23 ABG Total CO2 24 ABG O2 Saturation 97 ABG Base Excess -1.0 FiO2 70 Sodium Potassium Chloride Carbon Dioxide BUN Creatinine Estimated GFR BUN/Creatinine Ratio Glucose Lactate Calcium Magnesium Total Bilirubin AST ALT Alkaline Phosphatase Troponin I Total Protein Albumin Globulin Albumin/Globulin Ratio [facility] Medical History (Updated 08/07/21 @ 03:43 by SERAFIN Sharma) Acquired hypothyroidism Bilateral pulmonary embolism COVID-19 Obesity (BMI 30.0-34.9) Pneumonia due to COVID-19 virus Staghorn kidney stones Surgical History (Updated 08/07/21 @ 00:52 by SERAFIN Sharma) History of kidney surgery History of lithotripsy Family History (Updated 08/07/21 @ 01:09 by SERAFIN Sharma) Other No family history of disorders Social History household members: spouse Smoking Status: Never smoker Assessment & Plan Assessment & Plan narrative: Patient is a 56-year-old female Gloria Yan admitted with acute hypoxic respiratory failure secondary to COVID19 pneumonia and now with complicating bilateral PE with evidence of R heart strain. 1. Acute hypoxic respiratory failure secondary to worsening Bilateral pneumonia due to COVID-19 virus, resulting in bilateral pulmonary embolus and evidence of right heart strain. -continue lovenox for now -awaiting state transfer center for possible coordination of catheter directed embolectomy given R heart strain, elevated troponin on admit 1.8 which downtrended to 1.18. No beds currently along [address]. -TTE pending. -will continue to work on transfer. -Leukocytosis improved, was started on augmentin for possible superinfection of bacterial pneumonia on discharge, will continue augmentin for 4 additional days. 2. Chronic urinary tract infections, secondary to chronic renal calculi, acute on chronic, present on admission -CTA -6 mm left renal pelvis stone.? Left mid kidney stone with adjacent scarring.? There may be fluid adjacent to the left kidney.? Remote CT from 10/11 2016 showed a staghorn calculus in the left kidney visualized branches of the upper left and mid kidney are patent.? Revealed trace left pararenal fluid, findings could reflect obstruction pyelonephritis or renal infarct in the setting of hypocoagulable state. -catheter placed, urinary culture ordered to rule out UTI/pyelonephritis complication. -consider advanced imaging for possible renal infarct however given AMBER improvement management will not likely change. 3. Hypothyroidism, acquired, chronic, present on admission -continue patient's levothyroxine 4. Obesity as evidence by BMI of 30, acute on chronic present on admission -[place]orman consultation when appropriate. -places patient at higher morbidity and mortality risk from COVID19 infeciton. Code status:Full Surrogate decision maker: Spouse POA I spent 40 minutes providing critical care management this patient. This excludes time spent in performing separately billed procedures. COVID-19 COVID-19 status: Positive Time Spent With Patient Critical Care time: I spent a total of [] minutes of critical care time on this patient's care today; this time is exclusive of procedural time. Quality VTE Deep Vein Thrombosis/Pulmonary Embolism Present on Admission: Yes
--- NOTE | 2021-08-07 15:12 | CM.IDA ---
Initial DCP Assessment Note Pt is a 56 yo female, resident of [place], recently admitted d/t COVID-19 pneumonia, readmits directly from [facility]/worsening symptoms and admitted to with acute hypoxic respiratory failure secondary to COVID19 pneumonia and now with complicating bilateral PE with evidence of R heart strain. PCP: Not Listed Payer: Self Pay COVID-19 [employer] Fund Reviewed chart, pt discussed in multidisciplinary rounds this morning. According to Dr Pacheco: Attempting to transfer for IR embolization evaluation however no beds available. Placed call into patient's room this morning, introduced role. Patient does not sound in good spirits, voice is flat. RN describes patient's affect as flat. Patient admits to RN and MD that she feels scared. Patient reports to this INDUSTRIAL RENDERER that son and spouse have COVID-19, spouse not doing well but is managing at home currently. Patient denies needs from this INDUSTRIAL RENDERER currently states I guess I'm going to be here awhile. This INDUSTRIAL RENDERER offered support and suggested patient request CM team assistance as needed if any DC questions or concerns arose, patient states understanding. Plan: Home when medically cleared per patient request. Hospitalist attempting transfer at this time. Recovery expected to be lengthy. MARY Marcelo
--- NOTE | 2021-08-07 19:00 | PM.DS.1 ---
History of Present Illness History of Present Illness Date Patient Seen: 08/07/21 Time Patient Seen: 18:00 Chief complaint: BILATERL PE'S COVID + Narrative: Per Saumya Miller, VEGETABLE GROWER-: Patient is a 56-year-old female Gloria Yan with a history of hypothyroidism, was Discharged from [facility] less than 24 hours ago for Acute respiratory failure secondary to COVID pneumonia, Hypothyroid, and Chronic urinary tract infection.? The patient then presented TODAY to [facility] ED with worsening shortness of breath, hypoxic, her oxygen saturation mid 80s on a non-rebreather she was then placed on high-flow. ? She has been transferred to [facility] with a diagnosis of bilateral pneumonia, multiple bilateral pulmonary embolisms, acute hypoxic respiratory failure secondary to COVID 19-unvaccinated, with sepsis, and AMBER.? I personally reviewed patient's chart note from [facility] potassium 3.1, ion gap 7, creatinine 1.21 GFR 50, albumin 2.6, WBC 21.4, neutrophils 16.7.? Chest x-ray demonstrated worsening bilateral pneumonia. VBG: PH 7.39, pCO2 41, PO2 22, PE-1.0, HC03 24, O2 sat 36.7, HGB 15.7, (hs-cTnT) troponin 60 ng/L (range >12-120, value >120 may indicate a cardiac event).? D-dimer 3900, CTA PE r/o demonstrated worsening multi lobular COVID pneumonia multiple bilateral pulmonary emboli and there is evidence of right heart strain, trace left pararenal fluid possibly suggesting obstruction, pyelonephritis or renal infarct in the setting of hypercoagulability state, in addition small renal stones are present.? BNP 42, initial lactate 3.5, magnesium 1.9.? Patient's EKG as documented rate 108 sennas tachycardia normal QRS, nonspecific ST and T-wave changes:? Comparison to EKG from 07/30/2021 only change noted sinus tachycardia. Upon direct admit to [facility] ICU:? Patient is alert and orientated is mildly tachypneic, tachycardic, borderline febrile, anxious, alert and orientated x3, patient is on high-flow 30 L satting 93% at [facility].? The ambulance did not have high-flow and so the patient was placed on 15 L nasal cannula she presented moderately hypoxic, complaining of mild chest discomfort that does not change or worsen with movement activity, it is constant it is a pressure midsternal it does not radiate, not diaphoretic.? Patient's initial temp 100.1?, BP 89/61, map 70, HR 112, R 32, O2 saturation 98% on 40 L high-flow. Initial troponin 1.590 Unable to review previous EKGs, current EKG appears consistent with previous findings with the exception of sinus tachycardia rate 116, with nonspecific ST/T changes.? Patient was placed on heparin drip at [facility], and continued on drip initially upon admit.? Patient was in mild distress, complaining of fever, chills, shortness of breath, dyspnea on exertion, and cough. Denied nasal drainage, sore throat, visual changes, polyuria, rash, myalgia, abdominal pain distension diarrhea, constipation, nausea, vomiting, dysuria, headaches.? Patient's initial labs WBC 20.5, with a left shift neutrophils 19,065. Patient's AMBER has resolved potassium now normal at 3.8, creatinine 0.88, GFR >60, lactate 1.5, calcium 7.8 (corrected calcium 9), glucose 146, albumin 2.9.? Patient is stable and admitted for acute respiratory failure with hypoxia due to COVID pneumonia resulting in bilateral pulmonary embolus, and sepsis resulting in mild AMBER. Prior to previous admit to [facility] she was also seen in the ED at [facility] and transferred to our facility following diagnosis for COVID pneumonia on July 30/2021. Hospital Course 07/31-08/05/[address] Mendes? Patient was admitted to the hospital for acute respiratory failure secondary to COVID pneumonia.? She was placed on Decadron and remdesivir.? Patient completed a 5 day course of therapy.? She remained hypoxic throughout the hospital stay.? Her oxygen saturation remained in the high 80s on 3-5 L. she was tapered down from 5 L and able to be on 3 L at rest.? The patient was anxious to discharge home.? A home O2 eval was obtained.? And the patient was deemed appropriate for discharge home.? She has no complaints of cough shortness of breath or nausea at this time.? Patient will be discharged home on oxygen plans to follow-up with her PCP next week for further evaluation.? At the time of this dictation she is in no acute distress and deemed appropriate for discharge home. Discharge Providers Provider Date of admission: 08/06/21 21:20 Discharge Date: 08/07/21 Consults: 08/06/21 22:46 Consult to Respiratory Therapy Evaluate & Treat Comment: Covid /Bi PE PRN Physician Instructions: Evaluate and treat 08/06/21 23:13 Consult to Tele-affiliate marketing coordinator Routine Comment: Consulting Provider: Alise Tele-intensivists Reason for consultation: Commercial Airline Pilot services Has provider been notified: Yes 08/07/21 00:49 Consult After Hours PICC Line RN Urgent Comment: Discharge provider: Perez Pacheco DO Summary Hospital Course Discharge Diagnosis: Please see hospital course by problem list noted below Hospital Course: Patient is a 56-year-old female Gloria Yan admitted with acute hypoxic respiratory failure secondary to COVID19 pneumonia and now with complicating bilateral PE with evidence of R heart strain. She had previously been admitted here from 07/31 - 08/05 with respiratory failure discharged on 2-3L of supplemental oxygen, then re-presented to [facility] ([facility]) ER 08/06 with worsening hypoxia requiring heated high flow, accepted for admission here again on 08/06. Transferring now for evaluation of catheter directed embolectomy. 1. Acute hypoxic respiratory failure secondary to worsening Bilateral pneumonia due to COVID-19 virus and probable superinfection with bacterial pneumonia, resulting in bilateral pulmonary embolus and right heart strain. -continue lovenox for now, 1mg / kg BID -awaiting state transfer center for possible coordination of catheter directed embolectomy given R heart strain, elevated troponin on admit 1.8 which downtrended to 1.18. Patient was accepted to [facility], accepting Dr. Quintana. -EKG with sinus tachycardia, no ST elevations or depressions. -TTE with evdience of R heart strain. septal flattening, R ventricular dilatation, moderate RV dysfunction, and elevated RVSP. (see objective portion) -will continue to work on transfer. -Leukocytosis increased (20 on 08/05, readmit 15 then increased again to 20), likely due to steroids. was started on augmentin for possible superinfection of bacterial pneumonia on discharge on 08/05, which was continued here. -continued on dexamethasone 6 mg IV daily during her stay. -tele-affiliate marketing coordinator consult here appreciated, recommended transfer for evaluation for embolectomy to prevent termite control technician complications. 2. Chronic urinary tract infections, secondary to chronic renal calculi, acute on chronic, present on admission -CTA -6 mm left renal pelvis stone.? Left mid kidney stone with adjacent scarring.? There may be fluid adjacent to the left kidney.? Remote CT from 10/11/2016 showed a staghorn calculus in the left kidney visualized branches of the upper left and mid kidney are patent.? Revealed trace left pararenal fluid, findings could reflect obstruction pyelonephritis or renal infarct in the setting of hypocoagulable state. -catheter placed, urinary culture ordered to rule out UTI/pyelonephritis complication which was negative. catheter remains in for significant hypoxia. -consider advanced imaging for possible renal infarct however given AMBER improvement management will not likely change. 3. Hypothyroidism, acquired, chronic, present on admission -continue patient's levothyroxine 4. Obesity as evidence by BMI of 30, acute on chronic present on admission -barber stylist consultation when appropriate. -places patient at higher morbidity and mortality risk from COVID19 infeciton. 5. AMBER, improved creatinine 1.2 at OSH ER, now improved to 0.67. Code status:Full Surrogate decision maker: Spouse Shane CEJA Dispo: transfer to [facility], Accepting hospitalist Dr. Quintana Time Spent with Patient Time spent: Greater than 30 minutes Exam Vital Signs (past 8 hours): - 08/07/21 12:45 08/07/21 12:51 08/07/21 13:00 Temperature Pulse Rate 94 H 90 85 Respiratory Rate 28 H 31 H 24 Blood Pressure 95/62 90/55 L Pulse Oximetry 94 88 L 95 08/07/21 14:09 08/07/21 16:00 08/07/21 16:20 Temperature 97.5 F L Pulse Rate 86 86 72 Respiratory Rate 22 25 H 26 H Blood Pressure 98/66 115/67 Pulse Oximetry 96 94 94 08/07/21 17:00 08/07/21 17:15 08/07/21 17:30 Temperature Pulse Rate 65 69 82 Respiratory Rate 14 25 H 25 H Blood Pressure 119/78 Pulse Oximetry 96 94 94 08/07/21 17:45 08/07/21 18:00 08/07/21 18:15 Temperature Pulse Rate 83 78 72 Respiratory Rate 25 H 22 25 H Blood Pressure 107/65 Pulse Oximetry 94 96 96 08/07/21 18:30 08/07/21 18:45 Temperature Pulse Rate 70 76 Respiratory Rate 24 26 H Blood Pressure Pulse Oximetry 96 95 Fraction of Inspired Oxygen 70 Oxygen Delivery Method Heated High Flow Oxygen Flow Rate 40 Narrative Exam Narrative: ?GENERAL APPEARANCE: Well developed, well nourished, anxious but also flat. SKIN: Inspection of the skin reveals no rashes, ulcerations or petechiae. HEENT:? Normocephalic atraumatic, extraocular muscles are intact, oropharynx is clear and mucous membranes are moist. NECK: Supple and trachea midline. CHEST: Normal AP diameter and normal contour without any kyphoscoliosis. LUNGS: no obvious wheezing, rhonchi, or rales bilaterally. CARDIOVASCULAR: There was a regular rate and rhythm without any murmurs, gallops, rubs. Peripheral pulses were 2+ and symmetric. ABDOMEN: S, NT, ND MUSCULOSKELETAL: There was no tenderness or effusions noted. Muscle strength and tone were normal. EXTREMITIES: No cyanosis, clubbing or edema. NEUROLOGIC: Alert and oriented x 3. flat but anxious. Strength is +5/5 in the Upper Extremities and Lower Extremities Bilaterally. Sensation to touch was normal. Objective ECG Impression: Sinus tachycardia. Imaging CT scan - chest: Radiologist's impression: CTA PE r/o demonstrated worsening multi lobular COVID pneumonia multiple bilateral pulmonary emboli and there is evidence of right heart strain, trace left pararenal fluid possibly suggesting obstruction, pyelonephritis or renal infarct in the setting of hypercoagulability state, in addition small renal stones are present. Echo: Radiologist's impression: Interpretation Summary 1) Normal left ventricular size, thickness, and systolic function (EF 55-60%). 2) The interventricular septum is flattened, consistent with a right ventricular pressure overload condition. 3) The right ventricle is not well visualized, but appears to be moderately dilated with moderately reduced function. 4) The right ventricular systolic pressure is estimated to be at least 63 mmHg based on an estimated right atrial pressure of 15 mm Hg. 5) No prior Echo available for comparison. ? Procedure: ? A two-dimensional transthoracic echocardiogram with color flow and Doppler was performed. Most of the acoustic windows were suboptimal, but the best imaging was obtained from the parasternal window. A contrast injection of Definity was performed to improve assessment of LV function. There is no prior echocardiogram noted for this patient. Heart rate and rhythm are not recorded due to limiting equipment brought into an Airborne precaution room. Left Ventricle: ? The left ventricle is normal in size and wall thickness. The ejection fraction is estimated to be 55-60%. There are no obvious focal wall motion abnormalities noted but poor endocardial definition reduces the sensitivity for the detection of such. The interventricular septum is flattened, consistent with a right ventricular pressure overload condition. Right Ventricle: ? The right ventricle is not well visualized, but appears to be moderately dilated with moderately reduced function. Atria: ? The left atrium grossly appears normal in size. The right atrium grossly appears normal in size. There is no Doppler evidence for an interatrial shunt. Mitral Valve: ? The mitral valve is normal in structure and function. There is no mitral regurgitation noted. Aortic Valve: ? The aortic valve is not well visualized. The aortic valve opens well. There is no aortic valve stenosis. No aortic regurgitation is present. Tricuspid Valve: ? The tricuspid valve is not well visualized, but is grossly normal. There is mild tricuspid regurgitation. The right ventricular systolic pressure is estimated to be at least 63 mmHg based on an estimated right atrial pressure of 15 mm Hg. Pulmonic Valve: ? The pulmonic valve is not well visualized. Great Vessels: ? The aortic root is normal size. The ascending aorta is normal in size. The aortic arch is normal in size. The IVC is dilated (diameter is greater than 2.1 cm) and it collapses less than 50% with a sniff. This suggests a high right atrial pressure of 15 mm Hg. Pericardium/ Pleura ? There is no pericardial effusion. ? MMode/2D Measurements & Calculations LVIDd: 3.9 cm? LVOT diam: 2.0 cm LVIDs: 2.7 cm? Ao root diam: 3.2 cm FS: 30.7 % ? asc Aorta Diam: 3.1 cm EPSS: 0.18 cm? Ao Arch Diam (Prox Trans): 2.4 cm IVSd: 0.86 cm LVPWd: 0.69 cm LV [place]. diameter/BSA (cm/m^2): 1.7 LV sys. diameter/BSA (cm/m^2): 1.2 ? LA A4 area: 14.6 cm2 ? RA long axis: 5.0 cm LA length (vol): 6.5 cm? RA area: 17.6 cm2 ? RA vol: 52.8 ml ? RA : 23.8 ml/m2 ? IVC diam: 2.5 cm ? Doppler Measurements & Calculations Ao V2 max: 118.0 cm/sec? LVOT Max Ludin: 77.3 cm/sec Ao V2 mean: 80.7 cm/sec? LV V1 max P.4 mmHg Ao max P.6 mmHg? LV V1 VTI: 12.9 cm Ao mean P.9 mmHg ? AMELIA(I,D): 2.1 cm2 Ao V2 VTI: 19.5 cm ? AMELIA(V,D): 2.1 cm2 ? sev ratio: 0.66 ? AMELIA indexed to BSA (cm^2/m^2): 0.95 ? MV E max ludin: 37.6 cm/sec? TR max ludin: 347.2 cm/sec MV A max ludin: 53.4 cm/sec? TR max P.2 mmHg MV E/A: 0.70 ? PA V2 max: 64.7 cm/sec Med Peak E' Ludin: 7.3 cm/sec? ? ? PA V2 mean: 43.1 cm/sec E/E' med: 5.1? PA mean P.81 mmHg Lat Peak E' Ludin: 9.7 cm/sec? ? ? PA pr(Accel): 61.0 mmHg E/E' lat: 3.9 E/e' average: 4.5 MV dec time: 0.20 sec ? SV(LVOT): 41.1 ml ? Reading Physician:03:23 PM Labs Result Diagrams: 08/08/21 05:00 08/08/21 05:00 Labs: Laboratory Results - last 24 hr 08/06/21 08/06/21 08/06/21 22:25 22:25 22:25 WBC 20.5 H RBC 4.74 Hgb 13.0 Hct 39.6 MCV 83.5 MCH 27.3 MCHC 32.7 RDW 14.1 Plt Count 270 Neut % (Auto) Not Reportable Lymph % (Auto) Not Reportable [place] % (Auto) Not Reportable Eos % (Auto) Not Reportable Baso % (Auto) Not Reportable Neut # (Auto) Lymph # (Auto) Not Reportable [place] # (Auto) Not Reportable Eos # (Auto) Baso # (Auto) Not Reportable Total Counted 100 Seg Neutrophils % 90.0 H Band Neutrophils % 3.0 Lymphocytes % (Manual) 3.0 L Monocytes % (Manual) 3.0 Eosinophils % (Manual) 1.0 L Neutrophils # (Manual) 76991 H RBC Morphology Normal morphology PT INR APTT ABG pH ABG pCO2 ABG pO2 ABG HCO3 ABG Total CO2 ABG O2 Saturation ABG Base Excess FiO2 Sodium 137 Potassium 3.8 Chloride 108 H Carbon Dioxide 25 BUN 14 Creatinine 0.88 Estimated GFR > 60.0 BUN/Creatinine Ratio 15.9 Glucose 146 H Lactate 1.5 Calcium 7.8 L Magnesium Total Bilirubin 0.8 AST 35 ALT 15 Alkaline Phosphatase 51 Troponin I 1.590 H* Total Protein 6.1 L Albumin 2.9 L Globulin 3.2 Albumin/Globulin Ratio 0.9 L 08/06/21 08/07/21 08/07/21 22:25 04:40 04:40 WBC 15.7 H RBC 4.56 Hgb 12.4 Hct 37.8 MCV 83.0 MCH 27.2 MCHC 32.8 RDW 14.1 Plt Count 229 Neut % (Auto) 90.4 H Lymph % (Auto) 4.8 L [place] % (Auto) 4.3 Eos % (Auto) 0.2 L Baso % (Auto) 0.3 Neut # (Auto) 51786 H Lymph # (Auto) 800 L [place] # (Auto) 700 Eos # (Auto) 0 Baso # (Auto) 100 Total Counted Seg Neutrophils % Band Neutrophils % Lymphocytes % (Manual) Monocytes % (Manual) Eosinophils % (Manual) Neutrophils # (Manual) RBC Morphology PT 17.4 H INR 1.6 H APTT > 400 H* ABG pH ABG pCO2 ABG pO2 ABG HCO3 ABG Total CO2 ABG O2 Saturation ABG Base Excess FiO2 Sodium 137 Potassium 4.0 Chloride 107 Carbon Dioxide 24 BUN 16 Creatinine 0.72 Estimated GFR > 60.0 BUN/Creatinine Ratio 22.2 H Glucose 146 H Lactate Calcium 8.0 L Magnesium 1.9 Total Bilirubin 0.7 AST 30 ALT 15 Alkaline Phosphatase 43 Troponin I 1.180 H* Total Protein 6.0 L Albumin 2.8 L Globulin 3.2 Albumin/Globulin Ratio 0.9 L 08/07/21 08/07/21 04:40 04:55 WBC RBC Hgb Hct MCV MCH MCHC RDW Plt Count Neut % (Auto) Lymph % (Auto) [place] % (Auto) Eos % (Auto) Baso % (Auto) Neut # (Auto) Lymph # (Auto) [place] # (Auto) Eos # (Auto) Baso # (Auto) Total Counted Seg Neutrophils % Band Neutrophils % Lymphocytes % (Manual) Monocytes % (Manual) Eosinophils % (Manual) Neutrophils # (Manual) RBC Morphology PT INR APTT 37 H D ABG pH 7.43 ABG pCO2 34.9 L ABG pO2 91 ABG HCO3 23 ABG Total CO2 24 ABG O2 Saturation 97 ABG Base Excess -1.0 FiO2 70 Sodium Potassium Chloride Carbon Dioxide BUN Creatinine Estimated GFR BUN/Creatinine Ratio Glucose Lactate Calcium Magnesium Total Bilirubin AST ALT Alkaline Phosphatase Troponin I Total Protein Albumin Globulin Albumin/Globulin Ratio [facility] Medical History (Updated 08/07/21 @ 03:43 by ALLY Sharma-MARTIN) Acquired hypothyroidism Bilateral pulmonary embolism COVID-19 Obesity (BMI 30.0-34.9) Pneumonia due to COVID-19 virus Staghorn kidney stones Surgical History (Updated 08/07/21 @ 00:52 by SERAFIN Sharma) History of kidney surgery History of lithotripsy Family History (Updated 08/07/21 @ 01:09 by SERAFIN Sharma) Other No family history of disorders Social History household members: spouse Smoking Status: Never smoker Discharge Plan Discharge Plan Disposition: Xfer [facility] Quality VTE Deep Vein Thrombosis/Pulmonary Embolism Present on Admission: Yes
[2021-08-07] MEDS: ATORVASTATIN 20 MG TABLET 40 MG PO (20:30)
[2021-08-07] MEDS: AMOXICILLIN/CLAV 875/125 MG 1 TAB PO (20:30)
[2021-08-07] MEDS: SODIUM CHLORIDE 0.9% FLUSH 10 ML IV (20:31)
--- NOTE | 2021-08-07 22:42 | PC.NURSE ---
Shift Note-Patient has been lying to right or left side, SpO2 >92%, FIO2 on HHF decreased to 65% flow remains 40L, RR 20s, denies dyspnea or chest pain. Still has mild anxiety, asking appropriate questions which are answered, declines Ativan, Tylenol given for headache.
[2021-08-08] VITALS (68 sets, daily range): BP systolic 102–144; BP diastolic 55–80; PULSE 50–73; RESP 6–34; TEMP 36.8; O2SAT 90–99
[2021-08-08 05:13] LABS: Add Manual Diff / Slide Review NO; Basophils Absolute Auto 0 /uL (0-100); Basophils Percent Auto 0.2 % (0-2); Eosinophils Absolute Auto 0 /uL (0-450); Eosinophils Percent Auto 0.1 % (2-4); Hematocrit 36.9 % (36-46); Lymphocytes Absolute Auto 1200 /uL (1100-4500); Lymphocytes Percent Auto 5.5 % (25-40); Mean Corpuscular HGB Conc 32.6 % (30-36); Mean Corpuscular Hemoglobin 27.2 PG (26-34); Mean Corpuscular Volume 83.6 fL (80-100); Monocytes Absolute Auto 1200 /uL (0-900); Monocytes Percent Auto 5.6 % (3-14); Neutrophils Absolute Auto 18500 /uL (1500-7000); Neutrophils Percent Auto 88.6 % (50-75); Platelet Count 201 X10^3/uL (150-400); Red Blood Cell Count 4.41 X10^6/uL (4.0-5.2); Red Cell Distribution Width 14.5 % (11.6-14.8); White Blood Cell Count 20.9 X10^3/uL (4.5-11.0)
[2021-08-08 05:22] LABS: Chloride 106 mmol/L (98-107); HEMOLYSIS 24 (0-50)
[2021-08-08 05:24] LABS: Alanine Aminotransferase 16 IU/L (<35); Albumin 2.9 g/dL (3.5-5.0); Albumin Globulin Ratio 0.9 (1.0-2.8); Alkaline Phosphatase 55 U/L (38-126); Aspartate Aminotransferase 32 IU/L (14-36); BUN Creatinine Ratio 26.9 (6-22); Bilirubin Total 0.8 mg/dL (0.2-1.3); Blood Urea Nitrogen 18 mg/dL (7-17); Calcium 8.3 mg/dL (8.4-10.2); Carbon Dioxide 28 mmol/L (22-32); Estimated Glomerular Filt Rate > 60.0 mL/min (>60); Globulin 3.2 g/dL (1.7-4.1); Glucose 137 mg/dL (70-100); Magnesium 2.1 mg/dL (1.6-2.3); Potassium 4.2 mmol/L (3.4-5.1); Sodium 136 mmol/L (137-145); Total Protein 6.1 g/dL (6.3-8.2)
[2021-08-08] MEDS: ASPIRIN EC 81 MG TABLET PO (08:47)
[2021-08-08] MEDS: LORazepam 0.5 MG TABLET PO ×3 (08:47→23:40)
[2021-08-08] MEDS: DEXAMETHASONE 10 MG/ML VIAL 6 MG IV (08:48)
[2021-08-08] MEDS: ENOXAPARIN 100 MG/ML SYRINGE SUBCUT ×2 (08:48→21:23)
[2021-08-08] MEDS: AMOXICILLIN/CLAV 875/125 MG 1 TAB PO ×2 (08:48→21:23)
--- NOTE | 2021-08-08 09:47 | PM.PN.EICU ---
Subjective Subjective :: This patient was seen via real time interactive two-way audiovisual telecommunication. Current Medications Current Medications Medications: Home Medications amoxicillin 500 mg-potassium clavulanate 125 mg tablet 1 tab PO BID 07/31/21 [History Confirmed 08/07/21] levothyroxine 125 mcg tablet 112 mcg PO DAILY 07/31/21 [History Confirmed 08/07/21] liothyronine 5 mcg tablet 5 mcg PO DAILY 07/31/21 [History Confirmed 08/07/21] Visit Medications (administered) Generic Name Dose Route Start Last Admin Trade Name Freq PRN Reason Stop Dose Admin Acetaminophen 650 mg 08/06/21 22:41 08/07/21 20:30 Acetaminophen 325 Mg Tablet PO 650 mg Q6HR PRN Administration Fever/Mild Pain (1-3) Amoxicillin/Clavulanate Potassium 1 tab 08/07/21 21:00 08/08/21 08:48 Amoxicillin/Clav 875/125 Mg PO 08/11/21 20:59 1 tab BID GUSTAVO Administration Aspirin 81 mg 08/07/21 09:00 08/08/21 08:47 Aspirin Ec 81 Mg Tablet PO 81 mg DAILY GUSTAVO Administration Atorvastatin Calcium 40 mg 08/07/21 21:00 08/07/21 20:30 Atorvastatin 20 Mg Tablet PO 40 mg BEDTIME GUSTAVO Administration Dexamethasone 6 mg 08/07/21 09:00 08/08/21 08:48 Dexamethasone 10 Mg/Ml Vial IV 6 mg DAILY GUSTAVO Administration Enoxaparin Sodium 100 mg 08/07/21 09:00 08/08/21 08:48 Enoxaparin 100 Mg/Ml Syringe SUBCUT 100 mg BID GUSTAVO Administration Heparin Sodium (Porcine) 50 unit 08/07/21 21:00 08/08/21 08:48 Heparin Flush (Cl/Picc/Mid-Line) 50 Unit/5 Ml Syringe IV 50 unit BID GUSTAVO Administration Lorazepam 0.5 mg 08/06/21 22:46 08/08/21 08:47 Lorazepam 0.5 Mg Tablet PO 0.5 mg Q4HR PRN Administration Anxiety Pantoprazole Sodium 20 mg 08/07/21 07:00 08/07/21 23:[address] 20 Mg Tablet PO 20 mg 0700,2100 GUSTAVO Administration Sodium Chloride 10 ml 08/07/21 21:00 08/07/21 20:31 Sodium Chloride 0.9% Flush IV 10 ml BID GUSTAVO Administration Objective Labs Result Diagrams: 08/08/21 05:00 08/08/21 05:00 Labs: Laboratory Results - last 24 hr 08/08/21 08/08/21 05:00 05:00 WBC 20.9 H RBC 4.41 Hgb 12.0 Hct 36.9 MCV 83.6 MCH 27.2 MCHC 32.6 RDW 14.5 Plt Count 201 Neut % (Auto) 88.6 H Lymph % (Auto) 5.5 L [place] % (Auto) 5.6 Eos % (Auto) 0.1 L Baso % (Auto) 0.2 Neut # (Auto) 85149 H Lymph # (Auto) 1200 [place] # (Auto) 1200 H Eos # (Auto) 0 Baso # (Auto) 0 Sodium 136 L Potassium 4.2 Chloride 106 Carbon Dioxide 28 BUN 18 H Creatinine 0.67 Estimated GFR > 60.0 BUN/Creatinine Ratio 26.9 H Glucose 137 H Calcium 8.3 L Magnesium 2.1 Total Bilirubin 0.8 AST 32 ALT 16 Alkaline Phosphatase 55 Total Protein 6.1 L Albumin 2.9 L Globulin 3.2 Albumin/Globulin Ratio 0.9 L Exam Vital Signs (past 8 hours): - 08/08/21 02:00 08/08/21 02:08 08/08/21 02:15 Pulse Rate 60 63 59 L Respiratory Rate 23 20 22 Blood Pressure 109/63 109/62 Pulse Oximetry 93 92 92 08/08/21 02:30 08/08/21 02:45 08/08/21 03:00 Pulse Rate 60 61 57 L Respiratory Rate 20 19 24 Blood Pressure 111/67 Pulse Oximetry 92 90 L 93 08/08/21 03:15 08/08/21 03:30 08/08/21 03:45 Pulse Rate 58 L 50 L 50 L Respiratory Rate 20 22 19 Blood Pressure Pulse Oximetry 91 95 94 08/08/21 04:00 08/08/21 04:15 08/08/21 04:20 Pulse Rate 50 L 50 L 52 L Respiratory Rate 21 20 24 Blood Pressure 103/56 L 103/56 L Pulse Oximetry 97 97 95 08/08/21 04:30 08/08/21 04:45 08/08/21 05:00 Pulse Rate 52 L 54 L 53 L Respiratory Rate 21 21 24 Blood Pressure Pulse Oximetry 94 91 93 08/08/21 05:01 08/08/21 05:15 08/08/21 05:30 Pulse Rate 52 L 55 L 54 L Respiratory Rate 18 20 21 Blood Pressure 122/57 L Pulse Oximetry 93 97 95 08/08/21 05:45 08/08/21 06:00 08/08/21 06:15 Pulse Rate 51 L 57 L 55 L Respiratory Rate 21 6 L 11 L Blood Pressure 120/71 Pulse Oximetry 93 93 96 08/08/21 06:30 08/08/21 06:45 08/08/21 07:00 Pulse Rate 53 L 50 L 64 Respiratory Rate 18 21 26 H Blood Pressure 102/70 Pulse Oximetry 97 98 97 08/08/21 07:15 08/08/21 07:30 08/08/21 07:45 Pulse Rate 58 L 52 L 51 L Respiratory Rate 21 19 20 Blood Pressure Pulse Oximetry 91 95 95 08/08/21 08:00 08/08/21 08:25 Pulse Rate 53 L 56 L Respiratory Rate 20 24 Blood Pressure 120/68 Pulse Oximetry 95 96 Fraction of Inspired Oxygen 70 Oxygen Delivery Method Heated High Flow Oxygen Flow Rate 40 Quality TeleICU VTE Deep Vein Thrombosis/Pulmonary Embolism Present on Admission: Yes Assessment & Plan Assessment & Plan narrative: Assessment & Plan narrative: patient seen and examined on MTD rounds with bedside MD and nursing staff clinically better than yesterday no new complaints afebrile, HD stable, high flow 40L 70% echo showed singns of significant right heart strain a/p acute respiratory failure 2/2 to pulmonary embolism right heart strain 2/2 to PE chronic respiratory failure 2/2 to covid pna plan -echo results reviweed -patient awaiting transfer for possible embolectomy -continuefull anticoagulation -wean o2 support as tolerated -maintain map above 65 =continue steroids Time Spent With Patient Critical Care time: I spent a total of [] minutes of critical care time on this patient's care today; this time is exclusive of procedural time.
[2021-08-08] MEDS: SODIUM CHLORIDE 0.9% FLUSH 10 ML IV ×2 (11:49→21:25)
[2021-08-08] MEDS: PANTOPRAZOLE DR 20 MG TABLET PO ×2 (11:50→21:23)
--- NOTE | 2021-08-08 11:51 | PC.NURSE ---
AM shift Pt is resting quietly with HHFNC in place. Current Settings 40L and 50% Fio2. This has come down over the last 8 hours. Pt awaiting transfer for pulmonary emblectomy. No ICU beds available. [facility] with [facility] to get placement for patient. Update provided to Spouse Shane, he is aware that bed availability is the deciding factor. At present, Pt is anxious adn has rec'd ativan. Steroids are amplifying this per pt. Reassured. Lungs are with bibasilar crackles and nonproductive cough. Afebrile. Denies pain with deep breathing. Improved somewhat from yesterday, per Pt. VSS. Denies CP at rest. Castillo in place with good urine output. Call light in reach. Continue to follow isolation for COVID +
--- NOTE | 2021-08-08 15:02 | PM.PN.1 ---
Subjective Subjective Date Patient Seen: 08/08/21 Time Patient Seen: 15:02 Interval history: Shortness of breath improved this afternoon slightly, stable on 40L, 55% fio2. Chest pressure now resolved. Patient with evidence of R heart strain on CT and TTE. Attempting to transfer for IR embolization evaluation however no beds available. Exam Vital Signs (past 8 hours): - 08/08/21 07:15 08/08/21 07:30 08/08/21 07:45 Pulse Rate 58 L 52 L 51 L Respiratory Rate 21 19 20 Blood Pressure Pulse Oximetry 91 95 95 08/08/21 08:00 08/08/21 08:25 08/08/21 11:50 Pulse Rate 53 L 56 L 68 Respiratory Rate 20 24 24 Blood Pressure 120/68 Pulse Oximetry 95 96 93 Fraction of Inspired Oxygen 70 Oxygen Delivery Method Heated High Flow Oxygen Flow Rate 40 Narrative Exam Narrative: GENERAL APPEARANCE: Well developed, well nourished, anxious but also flat. SKIN: Inspection of the skin reveals no rashes, ulcerations or petechiae. HEENT:? Normocephalic atraumatic, extraocular muscles are intact, oropharynx is clear and mucous membranes are moist. NECK: Supple and trachea midline. CHEST: Normal AP diameter and normal contour without any kyphoscoliosis. LUNGS: no obvious wheezing, rhonchi, or rales bilaterally. CARDIOVASCULAR: There was a regular rate and rhythm without any murmurs, gallops, rubs. Peripheral pulses were 2+ and symmetric. ABDOMEN: S, NT, ND MUSCULOSKELETAL: There was no tenderness or effusions noted. Muscle strength and tone were normal. EXTREMITIES: No cyanosis, clubbing or edema. NEUROLOGIC: Alert and oriented x 3. flat but anxious. Strength is +5/5 in the Upper Extremities and Lower Extremities Bilaterally. Sensation to touch was normal. Objective Labs Result Diagrams: 08/08/21 05:00 08/08/21 05:00 Labs: Laboratory Results - last 24 hr 08/07/21 08/08/21 08/08/21 05:00 05:00 05:00 WBC 20.9 H RBC 4.41 Hgb 12.0 Hct 36.9 MCV 83.6 MCH 27.2 MCHC 32.6 RDW 14.5 Plt Count 201 Neut % (Auto) 88.6 H Lymph % (Auto) 5.5 L Miller % (Auto) 5.6 Eos % (Auto) 0.1 L Baso % (Auto) 0.2 Neut # (Auto) 88257 H Lymph # (Auto) 1200 Miller # (Auto) 1200 H Eos # (Auto) 0 Baso # (Auto) 0 ABG pH 7.43 ABG pCO2 34.9 L ABG pO2 91 ABG HCO3 23 ABG Total CO2 24 ABG O2 Saturation 97 ABG Base Excess -1.0 FiO2 70 Sodium 136 L Potassium 4.2 Chloride 106 Carbon Dioxide 28 BUN 18 H Creatinine 0.67 Estimated GFR > 60.0 BUN/Creatinine Ratio 26.9 H Glucose 137 H Calcium 8.3 L Magnesium 2.1 Total Bilirubin 0.8 AST 32 ALT 16 Alkaline Phosphatase 55 Total Protein 6.1 L Albumin 2.9 L Globulin 3.2 Albumin/Globulin Ratio 0.9 L PFSH Medical History (Updated 08/07/21 @ 03:43 by SERAFIN Sharma) Acquired hypothyroidism Bilateral pulmonary embolism COVID-19 Obesity (BMI 30.0-34.9) Pneumonia due to COVID-19 virus Staghorn kidney stones Surgical History (Updated 08/07/21 @ 00:52 by SERAFIN Sharma) History of kidney surgery History of lithotripsy Family History (Updated 08/07/21 @ 01:09 by SERAFIN Sharma) Other No family history of disorders Social History household members: spouse Smoking Status: Never smoker Assessment & Plan Assessment & Plan narrative: Patient is a 56-year-old female Gloria Yan admitted with acute hypoxic respiratory failure secondary to COVID19 pneumonia and now with complicating bilateral PE with evidence of R heart strain. 1. Acute hypoxic respiratory failure secondary to worsening Bilateral pneumonia due to COVID-19 virus, resulting in bilateral pulmonary embolus and right heart strain. -continue lovenox for now, 1mg / kg BID -[facility]aiting [facility] for possible coordination of catheter directed embolectomy given R heart strain, elevated troponin on admit 1.8 which downtrended to 1.18. No beds currently along [address] corridor. -TTE with evdience of R heart strain. septal flattening, R ventricular dilatation, moderate RV dysfunction, and elevated RVSP. -will continue to work on transfer. -Leukocytosis increased, likely due to steroids. was started on augmentin for possible superinfection of bacterial pneumonia on discharge, will continue augmentin for 4 additional days. 2. Chronic urinary tract infections, secondary to chronic renal calculi, acute on chronic, present on admission -CTA -6 mm left renal pelvis stone.? Left mid kidney stone with adjacent scarring.? There may be fluid adjacent to the left kidney.? Remote CT from 10/11 2016 showed a staghorn calculus in the left kidney visualized branches of the upper left and mid kidney are patent.? Revealed trace left pararenal fluid, findings could reflect obstruction pyelonephritis or renal infarct in the setting of hypocoagulable state. -catheter placed, urinary culture ordered to rule out UTI/pyelonephritis complication, currently negative. -consider advanced imaging for possible renal infarct however given AMBER improvement management will not likely change. 3. Hypothyroidism, acquired, chronic, present on admission -continue patient's levothyroxine 4. Obesity as evidence by BMI of 30, acute on chronic present on admission -spiritual minister consultation when appropriate. -places patient at higher morbidity and mortality risk from COVID19 infeciton. Code status:Full Surrogate decision maker: Spouse POA I spent 30 minutes providing critical care management this patient.? This excludes time spent in performing separately billed procedures. Time Spent With Patient Critical Care time: I spent a total of [] minutes of critical care time on this patient's care today; this time is exclusive of procedural time. Quality VTE Deep Vein Thrombosis/Pulmonary Embolism Present on Admission: Yes
--- NOTE | 2021-08-08 18:07 | PC.NURSE ---
pt on HHF 40L/55%. decreased to 40L/50% at 1650. O2 sat 95%. [facility] has accepted pt. Ambulance or [facility] will accept pts on NRB or Bipap/Cpap. Per Dr. Pacheco, Bipap/Cpap trail. Awaiting RT to set up. Pt aware of transfer and This RN called to inform pt's of transfer.
[2021-08-08] MEDS: ATORVASTATIN 20 MG TABLET 40 MG PO (21:23)
[2021-08-08] MEDS: HYDROCODONE/ACET 5/325 TABLET 2 TAB PO (23:40)
[2021-08-09] VITALS: BP 123/79; PULSE 63; RESP 27; O2SAT 96
[2021-08-09 00:15] VITALS: PULSE 66; RESP 27; O2SAT 95
--- NOTE | 2021-08-09 01:22 | PM.ICURNDS ---
- Date Patient Seen: 08/08/21 Time Patient Seen: 20:17 :: This patient was seen via real time interactive two-way audiovisual telecommunication. Note: Patient is awaiting transfer to outside hospital and apparently has a room. Continue present plan; discussed with RN.
--- NOTE | 2021-08-09 01:29 | PC.NURSE ---
0030 08/09/2021 Patient departs unit with ambulance crew and Safia ASKEW. Denies pain. VS stable on 15L non-rebreather.
== END 2021-08-09 00:30 | disposition short-term general hospital (02) | DRG 871 ==
PROVIDERS: Admitting Provider Nurse Practitioner Family; Referring Provider Nurse Practitioner Family; Visit Provider Nurse Practitioner Family
DX: A41.89 Other specified sepsis (principal); U07.1 COVID-19; J12.82 Pneumonia due to coronavirus disease 2019; J96.01 Acute respiratory failure with hypoxia; I26.09 Other pulmonary embolism with acute cor pulmonale; N17.9 Acute kidney failure, unspecified; R65.20 Severe sepsis without septic shock; I51.89 Other ill-defined heart diseases; E03.9 Hypothyroidism, unspecified; N20.0 Calculus of kidney
CPT/HCPCS: 36592; 36600; 71045; 80053; 82805; 83605; 83735; 84484; 85007; 85025; 85610; 85730; 87086; 93005; 93306; 93970; 94762; A9270; J1100; J1642; J1650; Q9957